=== PATIENT | male | born 1960 | race Two or more races ===

== ENCOUNTER 2016-12-07 21:21 | Emergency (ER) | payer OTHER ==
[~2016-12-07] VITALS: Ht 160 cm; Wt 81.6 kg
[~2016-12-07 21:21] MED LIST: ASPI-605 PO; [UNRECOGNIZED DRUG - REMARK]
[2016-12-07 22:12] LABS: BASOPHILS % (AUTO) 0.4 % (0.0-2.0); DIFF TOTAL % 100 %; EOSINOPHILS # (AUTO) 0.1 /CMM (0.0-0.7); EOSINOPHILS % (AUTO) 1.7 % (0.0-6.0); HEMATOCRIT 42 % (39-51); HEMOGLOBIN 14.5 g/dL (13.5-17.5); LYMPHOCYTES # (AUTO) 1.8 /CMM (0.8-4.8); LYMPHOCYTES % (AUTO) 25.2 % (20.0-44.0); MEAN CORPUSCULAR HEMOGLOBIN 31 PG (26.0-33.0); MEAN CORPUSCULAR HGB CONC 34 g/dl (31.0-36.0); MEAN CORPUSCULAR VOLUME 90 fL (80-96); MONOCYTES # (AUTO) 0.7 /CMM (0.1-1.30); MONOCYTES % (AUTO) 9.9 % (2.0-12.0); NEUTROPHILS # (AUTO) 4.5 /CMM (1.8-8.9); NEUTROPHILS % (AUTO) 62.8 % (43.0-81.0); PLATELET COUNT (AUTO) 169 /CMM (150-450); RED BLOOD CELL COUNT(AUTO) 4.72 MIL/uL (4.5-6.0); WHITE BLOOD COUNT (AUTO) 7.1 K/uL (4.3-11.0)
[2016-12-07 22:21] LABS: ANION GAP 10 (5-14); CALCIUM, SERUM 9.4 mg/dL (8.5-10.1); CARBON DIOXIDE 30 mmol/L (21-32); CHLORIDE 98 mmol/L (98-107); CREATININE 1.2 mg/dL (0.6-1.3); GFR 63 mL/min (>60); GLUCOSE 301 mg/dL (74-106); SODIUM SERUM 134 mmol/L (136-145); UREA NITROGEN, BLOOD 31 mg/dL (7-18)
[2016-12-07 22:26] LABS: ALANINE AMINOTRANSFERASE 45 U/L (12-78); ASPARTATE AMINOTRANSFERASE 29 U/L (15-37); BILIRUBIN,TOTAL 0.4 mg/dL (0.2-1.0); TOTAL PROTEIN, SERUM 7.5 g/dL (6.4-8.2)
[2016-12-07 22:41] LABS: ACETONE, SERUM NEGATIVE (NEGATIVE)
[2016-12-07 23:40] VITALS: BP 144/84
== END 2016-12-07 23:41 | disposition home or self-care (01) ==
LOC: ER 21:27
DX: E11.65 Type 2 diabetes mellitus with hyperglycemia (principal); R42 Dizziness and giddiness; I10 Essential (primary) hypertension; E78.00 Pure hypercholesterolemia, unspecified; Z79.82 Long term (current) use of aspirin
CPT/HCPCS: 36415; 80053; 82010; 82962; 85025; 99284; A4606; Z7610

== ENCOUNTER 2016-12-12 22:02 | Emergency (ER) | payer OTHER ==
[~2016-12-12] VITALS: Ht 170.2 cm; Wt 81.6 kg
[2016-12-12 23:09] LABS: BASOPHILS % (AUTO) 0.4 % (0.0-2.0); DIFF TOTAL % 100 %; EOSINOPHILS # (AUTO) 0.1 /CMM (0.0-0.7); EOSINOPHILS % (AUTO) 1.1 % (0.0-6.0); HEMATOCRIT 43 % (39-51); HEMOGLOBIN 14.5 g/dL (13.5-17.5); LYMPHOCYTES # (AUTO) 1.7 /CMM (0.8-4.8); LYMPHOCYTES % (AUTO) 17.8 % (20.0-44.0); MEAN CORPUSCULAR HEMOGLOBIN 31 PG (26.0-33.0); MEAN CORPUSCULAR HGB CONC 34 g/dl (31.0-36.0); MEAN CORPUSCULAR VOLUME 91 fL (80-96); MONOCYTES # (AUTO) 0.9 /CMM (0.1-1.30); MONOCYTES % (AUTO) 9.3 % (2.0-12.0); NEUTROPHILS # (AUTO) 6.7 /CMM (1.8-8.9); NEUTROPHILS % (AUTO) 71.4 % (43.0-81.0); PLATELET COUNT (AUTO) 147 /CMM (150-450); WHITE BLOOD COUNT (AUTO) 9.4 K/uL (4.3-11.0)
[2016-12-12 23:18] LABS: KETONES,URINE NEGATIVE (NEGATIVE); LEUKOCYTE ESTERASE ,URINE NEGATIVE (NEGATIVE)
[2016-12-12 23:19] LABS: CREATININE 1.2 mg/dL (0.6-1.3)
[2016-12-12 23:20] LABS: ADD UA MICROSCOPIC YES
[2016-12-12 23:25] LABS: BILIRUBIN,DIRECT 0.1 mg/dL (0.0-0.2); BILIRUBIN,TOTAL 0.4 mg/dL (0.2-1.0); INDIRECT BILIRUBIN 0.3 mg/dL (0.0-1.1); TOTAL PROTEIN, SERUM 7.5 g/dL (6.4-8.2)
[2016-12-12 23:27] LABS: TROPONIN I 0.02 ng/mL (0.00-0.056)
[2016-12-12 23:45] LABS: INR 0.99 (0.87-1.13); PROTHROMBIN TIME 10.7 SECS (9.5-12.7)
[2016-12-12 23:52] LABS: ADD URINE CULTURE NO; RBC,URINE NONE SEEN /HPF (0-2); WBC,URINE NONE SEEN /HPF (0-3)
[2016-12-13] MEDS ORDERED: IV NS 0.9% 1,000 ML BAG IV ONE (01:00)
[2016-12-13] MEDS ORDERED: TAMSULOSIN 0.4 MG CAP.SR.24H PO ONE (01:00)
[2016-12-13] MEDS ORDERED: IV SET PRIMARY 1 EA INFUS.SET MC ONE (01:04)
[2016-12-13] MEDS ORDERED: IV NS 0.9% 1,000 ML ONE (01:04)
[2016-12-13] MEDS ORDERED: TAMSULOSIN 0.4 MG CAP.SR.24H ONE (01:04)
[2016-12-13 01:59] VITALS: BP 127/75
[2016-12-13] MEDS ORDERED: ATOR20TA PO (11:13)
[2016-12-13] MEDS ORDERED: BENA1TAB18 PO (11:13)
[2016-12-13] MEDS ORDERED: DAPA5TAB PO (11:13)
[2016-12-13] MEDS ORDERED: AMLO5TAB2 PO (11:13)
[2016-12-14] MEDS ORDERED: PRED20TA PO (08:45)
[2016-12-14] MEDS ORDERED: CARV12.52 PO (08:45)
== END 2016-12-13 02:02 | disposition home or self-care (01) ==
LOC: ER 22:05
DX: I88.0 Nonspecific mesenteric lymphadenitis (principal); N20.0 Calculus of kidney; I10 Essential (primary) hypertension; E78.00 Pure hypercholesterolemia, unspecified; E11.9 Type 2 diabetes mellitus without complications; Z79.82 Long term (current) use of aspirin
CPT/HCPCS: 36415; 74176; 80048; 80076; 81001; 82010; 82962; 83690; 84484; 85025; 85730; 93005; 96360; 99285; A4606; J7030; Z7610; 81000-TC

== ENCOUNTER 2016-12-13 04:06 | Inpatient (IN) | payer BC, OTHER ==
[~2016-12-13] VITALS: Ht 170.2 cm; Wt 79.4 kg
[2016-12-13 04:47] LABS: BASOPHILS % (AUTO) 0.5 % (0.0-2.0); DIFF TOTAL % 100 %; EOSINOPHILS # (AUTO) 0.1 /CMM (0.0-0.7); EOSINOPHILS % (AUTO) 1.2 % (0.0-6.0); HEMATOCRIT 44 % (39-51); LYMPHOCYTES # (AUTO) 1.5 /CMM (0.8-4.8); LYMPHOCYTES % (AUTO) 16.9 % (20.0-44.0); MEAN CORPUSCULAR HEMOGLOBIN 31 PG (26.0-33.0); MEAN CORPUSCULAR HGB CONC 34 g/dl (31.0-36.0); MEAN CORPUSCULAR VOLUME 91 fL (80-96); MONOCYTES # (AUTO) 0.8 /CMM (0.1-1.30); MONOCYTES % (AUTO) 9.5 % (2.0-12.0); NEUTROPHILS # (AUTO) 6.3 /CMM (1.8-8.9); NEUTROPHILS % (AUTO) 71.9 % (43.0-81.0); PLATELET COUNT (AUTO) 132 /CMM (150-450); RED BLOOD CELL COUNT(AUTO) 4.86 MIL/uL (4.5-6.0); WHITE BLOOD COUNT (AUTO) 8.8 K/uL (4.3-11.0)
[2016-12-13 04:53] LABS: CALCIUM, SERUM 8.8 mg/dL (8.5-10.1); CREATININE 0.8 mg/dL (0.6-1.3); POTASSIUM 3.8 mmol/L (3.5-5.1)
[2016-12-13 04:59] LABS: ALBUMIN 4.1 g/dL (3.4-5.0); BILIRUBIN,DIRECT 0.1 mg/dL (0.0-0.2); BILIRUBIN,TOTAL 0.6 mg/dL (0.2-1.0); INDIRECT BILIRUBIN 0.5 mg/dL (0.0-1.1); TOTAL PROTEIN, SERUM 7.7 g/dL (6.4-8.2)
[2016-12-13 05:04] LABS: TROPONIN I 0.021 ng/mL (0.00-0.056)
[2016-12-13] MEDS ORDERED: ASPIRIN 81 MG TAB.CHEW PO ONE (05:30)
[2016-12-13] MEDS ORDERED: ASPIRIN 81 MG TAB.CHEW ONE (05:35)
[2016-12-13] MEDS ORDERED: HYDROCODONE/APAP 5/325MG 1 EACH TABLET PO PRN (06:00)
[2016-12-13] MEDS ORDERED: Z GUARD REMEDY 2 OZ OINT TP PRN (06:00)
[2016-12-13] MEDS ORDERED: ZOLPIDEM TARTRATE 5 MG TABLET PO PRN (06:00)
[2016-12-13] MEDS ORDERED: MAGNESIUM HYDROXIDE 30 ML UDC PO PRN (06:00)
[2016-12-13] MEDS ORDERED: ACETAMINOPHEN 325 MG TABLET PO PRN (06:00)
[2016-12-13] MEDS ORDERED: ONDANSETRON HCL/PF 4 MG/2 ML VIAL IVP PRN (06:00)
[2016-12-13] MEDS ORDERED: MAG HYDROX/AL HYDROX/SIMETH 30 ML UDC PO PRN (06:00)
[2016-12-13 06:30] VITALS: BP 157/92
[2016-12-13] MEDS ORDERED: MORPHINE SULFATE INJ 2 MG/ML DISP.SYRIN IV PRN (06:30)
[2016-12-13] MEDS ORDERED: PANTOPRAZOLE 40 MG TABLET.DR PO SCH (07:30)
[2016-12-13 08:00] VITALS: BP 156/86
[2016-12-13] MEDS: methylPREDNISolone SOD SUCC 125 MG/2ML VIAL IV SCH (08:49)
[2016-12-13] MEDS: CARVEDILOL 12.5 MG TABLET PO SCH ×2 (08:50→22:15)
[2016-12-13] MEDS: ASPIRIN EC 81 MG TABLET.DR PO SCH (08:50)
[2016-12-13] MEDS ORDERED: SECONDARY IV SET 1 EA INFUS.SET MC ONE (09:29)
[2016-12-13] MEDS ORDERED: IV SET PRIMARY PUMP SET 1 EA INFUS.SET MC ONE (09:33)
[2016-12-13] MEDS: CEFTRIAXONE 1 G in IV D5W 50 ML IV SCH (09:37)
[2016-12-13] MEDS: IV D5/ 0.9% NACL 1,000 ML IV PRN (09:38)
[2016-12-13 09:51] LABS: PHOSPHORUS 3.2 mg/dL (2.5-4.9)
[2016-12-13] MEDS ORDERED: BENA1TAB18 PO (11:13)
[2016-12-13] MEDS ORDERED: AMLO5TAB2 PO (11:13)
[2016-12-13] MEDS ORDERED: ATOR20TA PO (11:13)
[2016-12-13] MEDS ORDERED: DAPA5TAB PO (11:13)
[2016-12-13 16:00] VITALS: BP 149/66
[2016-12-13] MEDS ORDERED: HOME MED MISCELLANEOUS PO SCH (17:00)
[2016-12-13] MEDS ORDERED: ATORVASTATIN 10 MG TABLET PO SCH (18:00)
[2016-12-13] MEDS ORDERED: BENAZEPRIL HCL 20 MG TABLET PO SCH (18:30)
[2016-12-13] MEDS ORDERED: HYDROCHLOROTHIAZIDE 25 MG TABLET PO SCH (18:30)
[2016-12-13] MEDS: AMLODIPINE BESYLATE 5 MG TABLET PO SCH (18:46)
[2016-12-13] MEDS: HYDROCHLOROTHIAZIDE 25 MG TABLET PO SCH (18:46)
[2016-12-13] MEDS: BENAZEPRIL HCL 20 MG TABLET PO SCH (18:47)
[2016-12-13 20:00] VITALS: BP 146/92
[2016-12-14] MEDS: IV D5/ 0.9% NACL 1,000 ML IV PRN (01:24)
[2016-12-14 06:59] LABS: BASOPHILS % (AUTO) 0.1 % (0.0-2.0); DIFF TOTAL % 100 %; HEMATOCRIT 40 % (39-51); HEMOGLOBIN 13.5 g/dL (13.5-17.5); LYMPHOCYTES # (AUTO) 1.3 /CMM (0.8-4.8); LYMPHOCYTES % (AUTO) 9.2 % (20.0-44.0); MEAN CORPUSCULAR HEMOGLOBIN 31 PG (26.0-33.0); MEAN CORPUSCULAR HGB CONC 34 g/dl (31.0-36.0); MEAN CORPUSCULAR VOLUME 91 fL (80-96); MONOCYTES # (AUTO) 1.2 /CMM (0.1-1.30); MONOCYTES % (AUTO) 8.5 % (2.0-12.0); NEUTROPHILS # (AUTO) 11.9 /CMM (1.8-8.9); NEUTROPHILS % (AUTO) 82.2 % (43.0-81.0); PLATELET COUNT (AUTO) 144 /CMM (150-450); RED BLOOD CELL COUNT(AUTO) 4.36 MIL/uL (4.5-6.0); WHITE BLOOD COUNT (AUTO) 14.4 K/uL (4.3-11.0)
[2016-12-14 07:07] LABS: ALANINE AMINOTRANSFERASE 36 U/L (12-78); ALBUMIN 3.5 g/dL (3.4-5.0); ANION GAP 10 (5-14); ASPARTATE AMINOTRANSFERASE 18 U/L (15-37); BILIRUBIN,TOTAL 0.3 mg/dL (0.2-1.0); CALCIUM, SERUM 8.7 mg/dL (8.5-10.1); CARBON DIOXIDE 28 mmol/L (21-32); CHLORIDE 105 mmol/L (98-107); CREATININE 0.9 mg/dL (0.6-1.3); GFR 87 mL/min (>60); GLUCOSE 264 mg/dL (74-106); PHOSPHORUS 3.3 mg/dL (2.5-4.9); POTASSIUM 3.7 mmol/L (3.5-5.1); SODIUM SERUM 139 mmol/L (136-145); TOTAL PROTEIN, SERUM 6.8 g/dL (6.4-8.2); UREA NITROGEN, BLOOD 24 mg/dL (7-18)
[2016-12-14 07:08] LABS: TROPONIN I < 0.017 ng/mL (0.00-0.056)
[2016-12-14 08:00] VITALS: BP 139/82
[2016-12-14] MEDS: CEFTRIAXONE 1 G in IV D5W 50 ML IV SCH (08:22)
[2016-12-14] MEDS: BENAZEPRIL HCL 20 MG TABLET PO SCH (08:23)
[2016-12-14 08:24] VITALS: BP 139/82
[2016-12-14] MEDS: ASPIRIN EC 81 MG TABLET.DR PO SCH (08:24)
[2016-12-14] MEDS: AMLODIPINE BESYLATE 5 MG TABLET PO SCH (08:24)
[2016-12-14] MEDS: CARVEDILOL 12.5 MG TABLET PO SCH (08:24)
[2016-12-14] MEDS: HYDROCHLOROTHIAZIDE 25 MG TABLET PO SCH (08:24)
[2016-12-14] MEDS: methylPREDNISolone SOD SUCC 125 MG/2ML VIAL IV SCH (08:25)
[2016-12-14] MEDS ORDERED: CARV12.52 PO (08:45)
[2016-12-14] MEDS ORDERED: PRED20TA PO (08:45)
[2016-12-14] MEDS ORDERED: DAPAGLIFLOZIN 5 MG PO SCH (09:00)
[2016-12-14 14:25] LABS: CHOLESTEROL 180 mg/dL (<200); HDL CHOLESTEROL 52 mg/dL (40-60); LDL 115 mg/dL (0-99); TRIGLYCERIDES 43 mg/dL (30-150)
== END 2016-12-14 11:30 | disposition home or self-care (01) | DRG 206 ==
LOC: ER 04:08 → TELE 05:35 → MED 22:04
PROVIDERS: ADMIT Family Medicine; ATTEND Family Medicine
DX: M94.0 Chondrocostal junction syndrome [Tietze] (principal); D68.59 Other primary thrombophilia; I10 Essential (primary) hypertension; E11.9 Type 2 diabetes mellitus without complications; I88.0 Nonspecific mesenteric lymphadenitis; R42 Dizziness and giddiness; E78.5 Hyperlipidemia, unspecified
CPT/HCPCS: 36415; 71010-TC; 80048-TC; 80053-TC; 80061-TC; 80076-TC; 82962-TC; 83735-TC; 84100-TC; 84484-TC; 85025-TC; 93307-TC; A4606; J0696; J2930; J7042; J7060; Z7610

== ENCOUNTER 2016-12-15 04:14 | Emergency (ER) | payer OTHER ==
[~2016-12-15] VITALS: Ht 160 cm; Wt 81.6 kg
[~2016-12-15 04:14] MED LIST changes: +AMLO5TAB2 PO; +ATOR20TA PO; +BENA1TAB18 PO; +CARV12.52 PO; +DAPA5TAB PO; +PRED20TA PO
[2016-12-15] MEDS ORDERED: IV SET PRIMARY 1 EA INFUS.SET MC ONE (04:42)
[2016-12-15] MEDS ORDERED: IV NS 0.9% 1,000 ML ONE (04:42)
[2016-12-15] MEDS ORDERED: IV NS 0.9% 1,000 ML BAG IV ONE (05:00)
[2016-12-15 05:54] VITALS: BP 146/87
== END 2016-12-15 05:54 | disposition home or self-care (01) ==
LOC: ER 04:16
DX: R19.7 Diarrhea, unspecified (principal); E11.9 Type 2 diabetes mellitus without complications; I10 Essential (primary) hypertension; Z79.82 Long term (current) use of aspirin
CPT/HCPCS: 96360; 99284; A4606; J7030; Z7610

== ENCOUNTER 2016-12-18 12:48 | Emergency (ER) | payer OTHER ==
[~2016-12-18] VITALS: Ht 160 cm; Wt 81.6 kg
[2016-12-18 13:12] VITALS: BP 154/74
[2016-12-18] MEDS ORDERED: IV NS 0.9% 1,000 ML BAG IV ONE (13:30)
[2016-12-18 13:45] LABS: BASOPHILS % (AUTO) 0.5 % (0.0-2.0); DIFF TOTAL % 100 %; EOSINOPHILS # (AUTO) 0.1 /CMM (0.0-0.7); EOSINOPHILS % (AUTO) 0.9 % (0.0-6.0); HEMATOCRIT 48 % (39-51); HEMOGLOBIN 16.4 g/dL (13.5-17.5); LYMPHOCYTES # (AUTO) 1.9 /CMM (0.8-4.8); MEAN CORPUSCULAR HEMOGLOBIN 31 PG (26.0-33.0); MEAN CORPUSCULAR HGB CONC 35 g/dl (31.0-36.0); MEAN CORPUSCULAR VOLUME 90 fL (80-96); MONOCYTES # (AUTO) 0.8 /CMM (0.1-1.30); MONOCYTES % (AUTO) 9.9 % (2.0-12.0); NEUTROPHILS # (AUTO) 5.4 /CMM (1.8-8.9); NEUTROPHILS % (AUTO) 65.7 % (43.0-81.0); PLATELET COUNT (AUTO) 151 /CMM (150-450); RED BLOOD CELL COUNT(AUTO) 5.27 MIL/uL (4.5-6.0); WHITE BLOOD COUNT (AUTO) 8.2 K/uL (4.3-11.0)
[2016-12-18 13:55] LABS: CALCIUM, SERUM 8.9 mg/dL (8.5-10.1); CREATININE 1.2 mg/dL (0.6-1.3); POTASSIUM 3.7 mmol/L (3.5-5.1)
[2016-12-18 14:01] LABS: ALBUMIN 4.1 g/dL (3.4-5.0); BILIRUBIN,DIRECT 0.1 mg/dL (0.0-0.2); BILIRUBIN,TOTAL 0.5 mg/dL (0.2-1.0); INDIRECT BILIRUBIN 0.4 mg/dL (0.0-1.1); TOTAL PROTEIN, SERUM 8.5 g/dL (6.4-8.2)
== END 2016-12-18 14:13 | disposition home or self-care (01) ==
LOC: ER 12:50
DX: R19.7 Diarrhea, unspecified (principal); Z79.82 Long term (current) use of aspirin; I10 Essential (primary) hypertension; E11.9 Type 2 diabetes mellitus without complications; Z87.442 Personal history of urinary calculi
CPT/HCPCS: 36415; 80048-TC; 80076-TC; 83690-TC; 85025-TC; A4606; Z7610

== ENCOUNTER 2016-12-18 21:19 | Emergency (ER) | payer OTHER ==
[~2016-12-18] VITALS: Ht 160 cm; Wt 81.6 kg
[2016-12-18 21:25] VITALS: BP 163/95
== END 2016-12-18 23:43 | disposition home or self-care (01) ==
LOC: ER 21:19
DX: R19.7 Diarrhea, unspecified (principal); I10 Essential (primary) hypertension; E11.9 Type 2 diabetes mellitus without complications; Z79.82 Long term (current) use of aspirin; Z87.442 Personal history of urinary calculi; T50.905A Adverse effect of unspecified drugs, medicaments and biological substances, initial encounter; Y92.89 Other specified places as the place of occurrence of the external cause
CPT/HCPCS: 82962-TC; A4606; Z7610

== ENCOUNTER 2017-03-20 23:32 | Emergency (ER) | payer BC ==
[~2017-03-20] VITALS: Ht 160 cm; Wt 81.6 kg
[2017-03-21] MEDS ORDERED: KETOROLAC TROMETHAMINE INJ 30 MG/ML VIAL IV ONE
[2017-03-21] MEDS ORDERED: IV NS 0.9% 500 ML BAG IV ONE
--- NOTE | 2017-03-21 | NUR ---
To bed 8 a 57 yo male bibself with c/o of dysuria x 1 week and back pain for x1 day. Patient is aaox4, ambulatory with steady gait. Per patient he went to pmd today, blood test was done however the results will come in "few days." Afebrile. VSS. Initiated comfort measures. Awaiting for er md harrington.
[2017-03-21] MEDS ORDERED: IV SET PRIMARY 1 EA INFUS.SET MC ONE (00:01)
[2017-03-21] MEDS ORDERED: IV NS 0.9% 500 ML IV ONE (00:01)
[2017-03-21] MEDS ORDERED: KETOROLAC TROMETHAMINE 15 MG/ML VIAL ONE (00:01)
--- NOTE | 2017-03-21 00:13 | NUR ---
started a saline lock on the lac g 20, blood drawn and sent to lab.
--- NOTE | 2017-03-21 00:16 | NUR ---
Medicated patient as ordered by Dr Brown.
[2017-03-21 00:20] LABS: APPEARANCE,URINE CLEAR (CLEAR); BILIRUBIN,URINE NEGATIVE (NEGATIVE); BLOOD, URINE TRACE Ery/uL (NEGATIVE); KETONES,URINE NEGATIVE (NEGATIVE); LEUKOCYTE ESTERASE ,URINE NEGATIVE (NEGATIVE); NITRITE, URINE NEGATIVE (NEGATIVE); PROTEIN,URINE NEGATIVE (NEGATIVE); UGLUCOSE NEGATIVE (NEGATIVE); UROBILINOGEN,URINE 0.2 EU/dL (0.2)
[2017-03-21 00:20] LABS: BASOPHILS % (AUTO) 0.2 % (0.0-2.0); EOSINOPHILS # (AUTO) 0.1 /CMM (0.0-0.7); HEMATOCRIT 46 % (39-51); HEMOGLOBIN 15.1 g/dL (13.5-17.5); LYMPHOCYTES # (AUTO) 1.7 /CMM (0.8-4.8); MEAN CORPUSCULAR HEMOGLOBIN 30 PG (26.0-33.0); MEAN CORPUSCULAR HGB CONC 33 g/dl (31.0-36.0); MEAN CORPUSCULAR VOLUME 91 fL (80-96); MONOCYTES # (AUTO) 1.1 /CMM (0.1-1.30); MONOCYTES % (AUTO) 8.1 % (2.0-12.0); NEUTROPHILS # (AUTO) 10.1 /CMM (1.8-8.9); NEUTROPHILS % (AUTO) 77.7 % (43.0-81.0); PLATELET COUNT (AUTO) 147 /CMM (150-450); RDW COEFFICIENT OF VARIATION 13.5 (11.5-15.0); RED BLOOD CELL COUNT(AUTO) 5.01 MIL/uL (4.5-6.0)
[2017-03-21 00:22] LABS: COLOR,URINE STRAW (YELLOW)
[2017-03-21 00:27] LABS: ADD URINE CULTURE NO; BACTERIA,URINE None seen /HPF (None Seen); RBC,URINE 0-2 /HPF (0-2); SQUAMOUS EPITHELIAL CELL,UR Rare /HPF (None Seen)
[2017-03-21 00:30] LABS: CALCIUM, SERUM 8.8 mg/dL (8.5-10.1); CREATININE 0.9 mg/dL (0.6-1.3); POTASSIUM 3.6 mmol/L (3.5-5.1)
--- NOTE | 2017-03-21 00:35 | NUR ---
back from ct.
[2017-03-21 00:40] LABS: ALBUMIN 4.1 g/dL (3.4-5.0); BILIRUBIN,DIRECT 0.1 mg/dL (0.0-0.2); BILIRUBIN,TOTAL 0.6 mg/dL (0.2-1.0); TOTAL PROTEIN, SERUM 7.8 g/dL (6.4-8.2)
--- NOTE | 2017-03-21 01:31 | NUR ---
dcIV removed. Catheter intact and site benign. Pressure and 4x4 applied to site. No bleeding noted. Patient discharged to home in stable condition. Written and verbal after care instructions given. Patient verbalizes understanding of instruction. Patient is ambulatory with steady gait.
[2017-03-21 01:32] VITALS: BP 144/79
== END 2017-03-21 01:33 | disposition home or self-care (01) ==
LOC: ER 23:32
DX: N20.0 Calculus of kidney (principal); E11.9 Type 2 diabetes mellitus without complications; I10 Essential (primary) hypertension; Z79.82 Long term (current) use of aspirin
CPT/HCPCS: 36415; 74176; 80048; 80076; 81001; 83690; 85025; 96374; 99285; A4606 ×2; J1885; J7040; Z7610 ×2; 81000-TC

== ENCOUNTER 2017-12-15 09:07 | Emergency (ER) | payer BC, MEDICAID ==
[~2017-12-15] VITALS: Ht 165.1 cm; Wt 70.9 kg
--- NOTE | 2017-12-15 09:15 | NUR ---
AAOX3, CAME TO ER C/O POUNDING-LIKE SENSATION IN THE CHEST SINCE YESTERDAY. DENIES CHEST PAIN AND POUNDING LIKE SENSATION DURING ASSESSMENT. SKIN IS WARM AND DRY. RESP IS EVEN AND UNLABORED WITH NAD NOTED. PLACED ON THE MONITOR. WILL CONTINUOUSLY MONITOR THE PATIENT. DR DAVIS AT FOR EVAL.
[2017-12-15] MEDS ORDERED: Magnesium 1GM/D5W 100ML PREMIX 100 ML IV ONE (09:20)
[2017-12-15] MEDS ORDERED: ASPIRIN 325 MG TABLET ONE (09:20)
[2017-12-15 09:27] LABS: BASOPHILS % (AUTO) 0.8 % (0.0-2.0); EOSINOPHILS % (AUTO) 2.3 % (0.0-6.0); HEMATOCRIT 50 % (39-51); HEMOGLOBIN 17.5 g/dL (13.5-17.5); LYMPHOCYTES % (AUTO) 16.9 % (20.0-44.0); MEAN CORPUSCULAR HEMOGLOBIN 31 PG (26.0-33.0); MEAN CORPUSCULAR HGB CONC 35 g/dl (31.0-36.0); MEAN CORPUSCULAR VOLUME 90 fL (80-96); MONOCYTES % (AUTO) 7.5 % (2.0-12.0); NEUTROPHILS % (AUTO) 72.5 % (43.0-81.0); PLATELET COUNT (AUTO) 152 /CMM (150-450); RDW COEFFICIENT OF VARIATION 12.5 (11.5-15.0); RED BLOOD CELL COUNT(AUTO) 5.59 MIL/uL (4.5-6.0); WHITE BLOOD COUNT (AUTO) 6.7 K/uL (4.3-11.0)
[2017-12-15 09:28] LABS: BASOPHILS # (AUTO) 0.1 /CMM (0.0-0.2); EOSINOPHILS # (AUTO) 0.2 /CMM (0.0-0.7); LYMPHOCYTES # (AUTO) 1.1 /CMM (0.8-4.8); MONOCYTES # (AUTO) 0.5 /CMM (0.1-1.30); NEUTROPHILS # (AUTO) 4.8 /CMM (1.8-8.9)
[2017-12-15] MEDS ORDERED: Magnesium 1GM/D5W 100ML PREMIX 100 ML IV SCH (09:30)
[2017-12-15] MEDS ORDERED: ASPIRIN 325 MG TABLET PO ONE (09:30)
--- NOTE | 2017-12-15 09:30 | NUR ---
CXR IN PROGRESS AT BS
[2017-12-15 09:42] LABS: CARBON DIOXIDE 29 mmol/L (21-32); CREATININE 0.8 mg/dL (0.6-1.3); GLUCOSE 226 mg/dL (74-106); UREA NITROGEN, BLOOD 19 mg/dL (7-18)
[2017-12-15 09:48] LABS: TROPONIN I < 0.017 ng/mL (0.00-0.056)
[2017-12-15 09:49] LABS: INR 0.97 (0.87-1.13)
[2017-12-15 09:54] LABS: CHLORIDE 100 mmol/L (98-107); POTASSIUM 3.7 mmol/L (3.5-5.1); SODIUM SERUM 136 mmol/L (136-145)
[2017-12-15] MEDS ORDERED: BENAZEPRIL HCL 10 MG TABLET PO ONE (10:00)
--- NOTE | 2017-12-15 10:35 | NUR ---
DR DAVIS AT BS FOR RE-EVAL.
[2017-12-15] MEDS ORDERED: BENAZEPRIL HCL 10 MG TABLET ONE (10:37)
--- NOTE | 2017-12-15 10:42 | NUR ---
IV removed. Catheter intact and site benign. Pressure and 4x4 applied to site. No bleeding noted.Patient discharged to home in stable condition. Written and verbal after care instructions given. Patient verbalizes understanding of instruction.
[2017-12-15 10:50] VITALS: BP 165/92
== END 2017-12-15 10:55 | disposition home or self-care (01) ==
LOC: ER 09:08
DX: R00.2 Palpitations (principal); I10 Essential (primary) hypertension; E11.65 Type 2 diabetes mellitus with hyperglycemia; Z87.442 Personal history of urinary calculi; Z79.82 Long term (current) use of aspirin
CPT/HCPCS: 36415; 71045; 80048; 83735; 84484; 85025; 85730; 93005; 96365; 99285; A4606; J3475; Z7610

== ENCOUNTER 2017-12-17 04:18 | Inpatient (IN) | payer OTHER ==
[2017-12-17] VITALS (9 sets, daily range): BP systolic 114–185; BP diastolic 70–107
[~2017-12-17] VITALS: Ht 160 cm; Wt 81.6 kg
--- NOTE | 2017-12-17 04:27 | NUR ---
PT AMBULATORY TO ER BED 7. PT BIB SELF C/O "FEELING LIKE HEART SQUEEZING" X 4 DAYS. PT PLACED IN GOWN AND ON YARD HAND. VSS/RESP EVEN UNLABORED/NAD NOTED/SKIN WARM AND DRY/DENIES N-V-D/AOX4. AWAITING MD RIVERA.
--- NOTE | 2017-12-17 04:33 | NUR ---
RN AT BEDSIDE TO OBTAIN EKG.
--- NOTE | 2017-12-17 04:45 | NUR ---
LAB AT BEDSIDE TO DRAW.
--- NOTE | 2017-12-17 04:50 | NUR ---
AT BEDSIDE FOR EVAL.
--- NOTE | 2017-12-17 04:56 | NUR ---
XRAY AT BEDSIDE.
[2017-12-17 04:58] LABS: BASOPHILS % (AUTO) 0.5 % (0.0-2.0); EOSINOPHILS # (AUTO) 0.2 /CMM (0.0-0.7); EOSINOPHILS % (AUTO) 3.6 % (0.0-6.0); HEMATOCRIT 47 % (39-51); HEMOGLOBIN 16.2 g/dL (13.5-17.5); LYMPHOCYTES # (AUTO) 1.5 /CMM (0.8-4.8); LYMPHOCYTES % (AUTO) 23.5 % (20.0-44.0); MEAN CORPUSCULAR HEMOGLOBIN 31 PG (26.0-33.0); MEAN CORPUSCULAR HGB CONC 35 g/dl (31.0-36.0); MEAN CORPUSCULAR VOLUME 90 fL (80-96); MONOCYTES # (AUTO) 0.6 /CMM (0.1-1.30); MONOCYTES % (AUTO) 10.4 % (2.0-12.0); NEUTROPHILS # (AUTO) 3.8 /CMM (1.8-8.9); PLATELET COUNT (AUTO) 156 /CMM (150-450); RDW COEFFICIENT OF VARIATION 12.8 (11.5-15.0); RED BLOOD CELL COUNT(AUTO) 5.22 MIL/uL (4.5-6.0); WHITE BLOOD COUNT (AUTO) 6.2 K/uL (4.3-11.0)
[2017-12-17 05:10] LABS: CALCIUM, SERUM 9.2 mg/dL (8.5-10.1); CARBON DIOXIDE 30 mmol/L (21-32); CHLORIDE 104 mmol/L (98-107); CREATININE 0.9 mg/dL (0.6-1.3); GLUCOSE 230 mg/dL (74-106); POTASSIUM 3.6 mmol/L (3.5-5.1); SODIUM SERUM 140 mmol/L (136-145); UREA NITROGEN, BLOOD 19 mg/dL (7-18)
[2017-12-17 05:18] LABS: TROPONIN I < 0.017 ng/mL (0.00-0.056)
--- NOTE | 2017-12-17 05:38 | NUR ---
TELE BED 112.2
--- NOTE | 2017-12-17 05:45 | NUR ---
RECEIVED REPORT FROM ER NURSE XAVIER
--- NOTE | 2017-12-17 05:50 | NUR ---
REPORT GIVEN TO NINA HAAS FOR BRYAN.
[2017-12-17] MEDS ORDERED: IV NS 0.9% 1,000 ML BAG IV ONE (06:00)
--- NOTE | 2017-12-17 06:26 | NUR ---
PT TRANSPORTED TO [place] [address] VIA STRATCHER ON TRUST OPERATIONS ASSISTANT WITH RN PER ACLS PROTOCOL.
--- NOTE | 2017-12-17 06:50 | NUR ---
INTAKE MAN INITIAL NOTES RECEIVED PATIENT VIA TONI, PLACED PATIENT IN ROOM 109. PATIENT AWAKE A/OX4, ABLE TO MAKE NEEDS KNOWN. DENIES PAIN. STATES HE FEELS CHEST PRESSURE RATHER THAN PAIN, NON-RADIATING. ON ROOM AIR SPO2 98%. ON TELE MONITOR SR 94. SKIN WARM AND DRY TO TOUCH. WITH NS BOLUS RUNNING. PER PATIENT, HE WOKE UP FROM HIS SLEEP FEELING PRESSURE IN HIS CHEST, PALPITATIONS AND MOUTH DRYNESS, HE CAME ON SUNDAY FOR THE SAME PROBLEM BUT WAS SENT HOME. PATIENT NOTED WITH BP 185/98, PER PATIENT HE NOTICED HIS BP HAS BEEN ON THE HIGH SIDE RECENTLY. WITH BLOOD SUGAR AT 206. PER PATIENT HE HASN'T BEEN TAKING DIABETIC PILLS THE PAST COUPLE DAYS DUE TO COVERAGE. STATES HE WAS SUPPOSE TO VISIT DOCTOR TO CHANGE DIABETIC MEDICATION THAT HIS INSURANCE COVERS. PENDING ADMISSION ORDERS. PATIENT AMBULATES WITH NO DIFFICULTY. ORIENTED TO ROOM AND CALL LIGHT SYSTEM. PATIENT VERBALIZED UNDERSTANDING. SIDE RAILS UP AND LOCKED. BED KEPT AT LOWEST POSITION. CALL LIGHT KEPT WITHIN EASY REACH. WILL ENDORSE CONTINUITY OF CARE TO AM NURSE.
--- NOTE | 2017-12-17 07:37 | NUR ---
RELAYED TO AM NURSE TO FOLLOW UP ADMISSION ORDERS, RELAYED BP AND BLOOD SUGAR RESULT. AM NURSE WILL FOLLOW UP.
--- NOTE | 2017-12-17 07:50 | NUR ---
POLE INSPECTOR OPENING NOTE PATIENT IS COMFORTABLE IN BED WITH CALL LIGHT WITHIN REACH. SAFETY MEASURES IMPLEMENTED. ABLE TO COMMUNICATE NEEDS. IV INTACT AND PATENT NO REDNESS OR SWELLING NOTED. ALERT AND ORIENTED x4. NO CHEST PAIN AT THIS TIME OR OTHER PAIN NOTED. NO SOB OR DISTRESS NOTED. BLOOD SUGAR TO BE MONITORED THROUGHOUT SHIFT. AWAITING MD ORDERS. WILL CONTINUE TO MONITOR THROUGHOUT SHIFT
[2017-12-17] MEDS ORDERED: ACETAMINOPHEN 325 MG TABLET PO PRN (08:00)
[2017-12-17] MEDS ORDERED: DEXTROSE 50%-WATER 50 ML DISP.SYRIN IV PRN (08:00)
[2017-12-17] MEDS ORDERED: Z GUARD REMEDY 2 OZ OINT TP PRN (08:00)
[2017-12-17] MEDS ORDERED: HYDROCODONE/APAP 5/325MG 1 EACH TABLET PO PRN (08:00)
[2017-12-17] MEDS ORDERED: MAG HYDROX/AL HYDROX/SIMETH 30 ML UDC PO PRN (08:00)
[2017-12-17] MEDS ORDERED: ZOLPIDEM TARTRATE 5 MG TABLET PO PRN (08:00)
[2017-12-17] MEDS ORDERED: ONDANSETRON HCL/PF 4 MG/2 ML VIAL IVP PRN (08:00)
[2017-12-17] MEDS ORDERED: *INSULIN REGULAR(HUMULIN R)HUM 100 UNIT/ML VIAL SQ PRN (08:00)
[2017-12-17] MEDS: BLOOD SUGAR DIAGNOSTIC 1 EACH STRIP VI SCH ×4 (08:00→23:02)
--- NOTE | 2017-12-17 08:45 | NUR ---
ZYGLO INSPECTOR NOTE PATIENT HAD BLOOD SUGAR CHECKED ON PRIOR SHIFT, PATIENT DOES NOT WANT SUGAR RECHECKED AGAIN UNTIL LUNCH TIME.
[2017-12-17] MEDS: ASPIRIN EC 81 MG TABLET.DR PO SCH (08:52)
[2017-12-17] MEDS: HYDROCHLOROTHIAZIDE 25 MG TABLET PO SCH (08:52)
[2017-12-17] MEDS: BENAZEPRIL HCL 20 MG TABLET PO SCH (08:52)
[2017-12-17] MEDS: AMLODIPINE BESYLATE 5 MG TABLET PO SCH (08:53)
[2017-12-17] MEDS ORDERED: CARVEDILOL 12.5 MG TABLET PO SCH (09:00)
[2017-12-17] MEDS ORDERED: Dapagliflozin Propanediol (Farxiga) 5 MG PO SCH (09:00)
[2017-12-17] MEDS: INSULIN REGULAR, HUMAN 100 UNIT/ML 3 ML VIAL SQ PRN ×2 (10:36→17:25)
[2017-12-17 12:29] LABS: THYROID STIMULATING HORMONE 0.63 uIU/mL (0.358-3.74)
--- NOTE | 2017-12-17 15:58 | NUR ---
AUTO CRANE DRIVER NOTE NOTIFIED MD ABOUT STRESS TEST WITH DR. FRANCO TOMORROW AT 0900. CONSENT OBTAINED AND PLACED IN CHART. NUCLEAR MEDICINE MADE AWARE. PATIENT UNDERSTANDS NPO AT MIDNIGHT AND NO COFFEE OR TEA. CHARGE NURSE AWARE. WILL ENDORSE TO GAMING COMMISSIONER NURSE FOR BRYAN
[2017-12-17] MEDS ORDERED: ATORVASTATIN 10 MG TABLET PO SCH (18:00)
--- NOTE | 2017-12-17 18:27 | NUR ---
TREATING ENGINEER HELPER CLOSING NOTE PATIENT IS IN BED COMFORTABLE AT THIS TIME. NO PAIN AT THIS TIME. NO SOB OR DISTRESS NOTED. CALL LIGHT WITHIN REACH AT ALL TIMES. SAFETY MEASURES IMPLEMENTED. IV INTACT AND PATENT NO REDNESS OR SWELLING. BLOOD SUGARS MONITORED THROUGHOUT SHIFT AND INSULIN GIVEN NEEDED. STRESS TEST IN AM, NPO AFTER MIDNIGHT NO TEA OR COFFEE, CONSENT IN CHART. TELE MONITOR SR- 76. WILL ENDORSE TO DOUBLE END TRIMMER NURSE FOR BRYAN
--- NOTE | 2017-12-17 19:59 | NUR ---
RN OPENING NOTE RECEIVED PATIENT SITTING IN THE BED, ALERT/ORIENTED X 4, ON ROOM AIR, NO CHEST PAIN OR DISCOMFORT NOTED, INSTRUCTED PATIENT TO USE CALL LIGHT WHEN NEED TO USE BATHROOM, SR, LAC 18 GAUGE, INTACT, NO S/S OF INFECTION NOTED, BED IN THE LOW POSITION, CALL LIGHT WITHIN REACH, WILL CONTINUE TO MONITOR
--- NOTE | 2017-12-17 20:13 | NUR ---
RN NOTE PROVIDED REPORT TO NURSE CATHERINE, PATIENT WILL BE UNDER HER CARE
--- NOTE | 2017-12-17 20:30 | NUR ---
TELE1/RN PATIENT IS AWAKE, ALERT, ORIENTED, COMFORTABLE, NO C/O PAIN, NO DISTRESS NOTED, INFORMED ABOUT LEXISCAN TEST IN THE MORNING AND NOTHING BY MOUTH AFTER MIDNIGHT, VERBALIZED UNDERSTANDING. WILL MONITOR.
[2017-12-17] MEDS: CARVEDILOL 12.5 MG TABLET PO SCH (21:16)
--- NOTE | 2017-12-18 | NUR ---
TELE1/RN PATIENT IS SLEEPING AT THIS TIME, AROUSABLE, APPEAR COMFORTABLE, NO DISTRESS NOTED, WILL CONTINUE TO MONITOR.
[2017-12-18 04:00] VITALS: BP 153/85
[2017-12-18 06:26] LABS: BASOPHILS % (AUTO) 0.4 % (0.0-2.0); EOSINOPHILS # (AUTO) 0.1 /CMM (0.0-0.7); EOSINOPHILS % (AUTO) 1.5 % (0.0-6.0); HEMATOCRIT 44 % (39-51); HEMOGLOBIN 15.2 g/dL (13.5-17.5); LYMPHOCYTES # (AUTO) 1.8 /CMM (0.8-4.8); LYMPHOCYTES % (AUTO) 24.5 % (20.0-44.0); MEAN CORPUSCULAR HEMOGLOBIN 31 PG (26.0-33.0); MEAN CORPUSCULAR HGB CONC 35 g/dl (31.0-36.0); MEAN CORPUSCULAR VOLUME 91 fL (80-96); MONOCYTES # (AUTO) 0.7 /CMM (0.1-1.30); MONOCYTES % (AUTO) 9.6 % (2.0-12.0); NEUTROPHILS # (AUTO) 4.8 /CMM (1.8-8.9); PLATELET COUNT (AUTO) 144 /CMM (150-450); RDW COEFFICIENT OF VARIATION 13.1 (11.5-15.0); RED BLOOD CELL COUNT(AUTO) 4.83 MIL/uL (4.5-6.0); WHITE BLOOD COUNT (AUTO) 7.5 K/uL (4.3-11.0)
[2017-12-18 06:41] LABS: CALCIUM, SERUM 9.5 mg/dL (8.5-10.1); CREATININE 0.8 mg/dL (0.6-1.3); MAGNESIUM 1.9 mg/dL (1.8-2.4); PHOSPHORUS 3.8 mg/dL (2.5-4.9); POTASSIUM 4.1 mmol/L (3.5-5.1)
--- NOTE | 2017-12-18 06:47 | NUR ---
TELE1/RN PATIENT IS AWAKE AT THIS TIME, COMFORTABLE, NO C/O PAIN, NO DISTRESS NOTE, BLOOD SUGAR 249, NO S/S OF HYPERGLYCEMIA, DID NOT COVER WITH INSULIN PATIENT IS NPO FOR LEXISCAN TODAY. ALL NEEDS ATTENDED AT THIS TIME. WILL CONTINUE TO MONITOR.
[2017-12-18] MEDS: BLOOD SUGAR DIAGNOSTIC 1 EACH STRIP VI SCH ×2 (06:50→12:08)
--- NOTE | 2017-12-18 07:30 | NUR ---
RN NOTES RECEIVED PATIENT RESTING COMFORTABLY IN BED, AWAKE ALERT AND VERBALLY RESPONSIVE, ABLE TO MAKE NEEDS KNOWN. IN NO APPARENT PAIN OR DISCOMFORT AT THIS TIME. IV ACCESS TO LAC PATENT AND INTACT NO REDNESS OR INFILTRATION NOTED. KEPT CLEAN DRY AND COMFORTABLE CALL LIGHT WITHIN EASY REACH, WILL CONTINUE TO MONITOR
[2017-12-18 08:00] VITALS: BP 144/84
--- NOTE | 2017-12-18 08:00 | NUR ---
RN NOTES TAKEN TO NUCLEAR MEDICINE FOR STRESS TEST
[2017-12-18 08:30] VITALS: BP 144/84
[2017-12-18] MEDS ORDERED: REGADENOSON 0.4 MG/5 ML DISP.SYRIN IVP ONE (08:30)
[2017-12-18] MEDS: INSULIN REGULAR, HUMAN 100 UNIT/ML 3 ML VIAL SQ PRN ×2 (08:58→12:13)
[2017-12-18] MEDS: ASPIRIN EC 81 MG TABLET.DR PO SCH (09:00)
[2017-12-18] MEDS: HYDROCHLOROTHIAZIDE 25 MG TABLET PO SCH (09:02)
[2017-12-18] MEDS: AMLODIPINE BESYLATE 5 MG TABLET PO SCH (09:04)
[2017-12-18 10:06] VITALS: BP 148/92
[2017-12-18] MEDS: CARVEDILOL 12.5 MG TABLET PO SCH (10:06)
[2017-12-18] MEDS: BENAZEPRIL HCL 20 MG TABLET PO SCH (10:06)
--- NOTE | 2017-12-18 15:30 | NUR ---
RN NOTES PATIENT WITH DISCHARGE ORDERS, NO SKIN PROBLEMS AT THIS TIME, WILL CONTINUE TO MONITOR AND ASSIST WITH DISCHARGE PROCESS
--- NOTE | 2017-12-18 16:22 | NUR ---
INSURANCE ACCOUNT SPECIALIST NOTES PATIENT AWAKE ALERT AND VERBALLY RESPONSIVE, ABLE TO MAKE NEEDS KNOWN WITH DISCHARGE ORDERS, REQUESTING TAXI VOUCHER, RN SUPERVISOR BRAKE REPAIR AWARE. IN NO APPARENT PAIN OR DISCOMFORT AT THIS TIME. IV ACCESS AND ID BAND REMOVED WITH NO ASE NOTED.ALL DISCHARGE INSTRUCTIONS PROVIDED, WITH NOTED VERBAL UNDERSTANDING. ALL BELONGINGS ACCOUNTED FOR. ASSISTED TO LOBBY BY RN, DISCHARGED IN STABLE CONDITION
== END 2017-12-18 16:23 | disposition home or self-care (01) | DRG 206 ==
LOC: ER 04:20 → TELE1 05:45 → MEDSG1 12-18 08:53
PROVIDERS: ADMIT Nurse Practitioner Acute Care; ATTEND Nurse Practitioner Acute Care
DX: M94.0 Chondrocostal junction syndrome [Tietze] (principal); E11.9 Type 2 diabetes mellitus without complications; E66.9 Obesity, unspecified; I25.2 Old myocardial infarction; I10 Essential (primary) hypertension; N20.0 Calculus of kidney; E78.5 Hyperlipidemia, unspecified; Z87.442 Personal history of urinary calculi; Z79.84 Long term (current) use of oral hypoglycemic drugs; Z68.31 Body mass index [BMI] 31.0-31.9, adult; R00.2 Palpitations
CPT/HCPCS: 36415; 80048-TC; 80061-TC; 82306; 82962-TC; 83735-TC; 84100-TC; 84439-TC; 84443-TC; 84484-TC; 85025-TC; 93307-TC; A4606; A9502; J1815; J2785; J7030; Z7610

== ENCOUNTER 2020-05-08 09:33 | Emergency (ER) | payer BC, MEDICAID, OTHER ==
[~2020-05-08] VITALS: Ht 162.6 cm; Wt 81.6 kg
[~2020-05-08 09:33] MED LIST changes: -AMLO5TAB2 PO; +AMLO5TAB9 PO; -PRED20TA PO
--- NOTE | 2020-05-08 09:35 | NUR ---
BIB SELF C/O BACK PAIN FOR 10 DAYS. SEEN BY PMD LAST SUNDAY. TO ER BED 9, HOOKED TO MONITOR, CHANGED TO HOSP GOWN, WARM BLANKET PROVIDED, PATIENT AAO x 4, BREATHING EVEN AND UNLABORED. DR ARAUJO AT BEDSIDE.
[2020-05-08] MEDS ORDERED: KETOROLAC TROMETHAMINE 15 MG/ML VIAL ONE (09:57)
[2020-05-08] MEDS ORDERED: KETOROLAC TROMETHAMINE INJ 30 MG/ML VIAL IM ONE (10:00)
--- NOTE | 2020-05-08 10:00 | NUR ---
URINE SPECIMEN COLLECTED AND SENT TO LAB.
--- NOTE | 2020-05-08 10:02 | NUR ---
ER PHLEB AT BEDSIDE FOR BLOOD DRAW.
[2020-05-08 10:11] LABS: APPEARANCE,URINE Clear (CLEAR); BILIRUBIN,URINE Negative (NEGATIVE); BLOOD, URINE Negative Ery/uL (NEGATIVE); COLOR,URINE Yellow (YELLOW); KETONES,URINE Trace (NEGATIVE); LEUKOCYTE ESTERASE ,URINE Negative (NEGATIVE); NITRITE, URINE Negative (NEGATIVE); PH,URINE 7.5 (5.0-8.0); PROTEIN,URINE Negative (NEGATIVE); UGLUCOSE >=1000 mg/dL (NEGATIVE); UROBILINOGEN,URINE 0.2 EU/dL (0.2)
[2020-05-08 10:13] LABS: BACTERIA,URINE Rare /HPF (None Seen); RBC,URINE 0-2 /HPF (0-2); SQUAMOUS EPITHELIAL CELL,UR Few /HPF (None Seen); WBC,URINE 0-2 /HPF (0-3)
[2020-05-08 10:17] LABS: BASOPHILS # (AUTO) 0.1 /CMM (0.0-0.2); BASOPHILS % (AUTO) 0.9 % (0.0-2.0); EOSINOPHILS % (AUTO) 1.6 % (0.0-6.0); HEMATOCRIT 49 % (39-51); LYMPHOCYTES # (AUTO) 1.7 /CMM (0.8-4.8); LYMPHOCYTES % (AUTO) 20.9 % (20.0-44.0); MEAN CORPUSCULAR HGB CONC 35 g/dl (31.0-36.0); MEAN CORPUSCULAR VOLUME 92 fL (80-96); MONOCYTES # (AUTO) 0.6 /CMM (0.1-1.30); MONOCYTES % (AUTO) 7.2 % (2.0-12.0); NEUTROPHILS # (AUTO) 5.7 /CMM (1.8-8.9); NEUTROPHILS % (AUTO) 69.4 % (43.0-81.0); PLATELET COUNT (AUTO) 141 /CMM (150-450); RED BLOOD CELL COUNT(AUTO) 5.37 MIL/uL (4.5-6.0); WHITE BLOOD COUNT (AUTO) 8.2 K/uL (4.3-11.0)
[2020-05-08 10:29] LABS: ALBUMIN 4.3 g/dL (3.4-5.0); BILIRUBIN,DIRECT 0.1 mg/dL (0.0-0.2); BILIRUBIN,TOTAL 0.5 mg/dL (0.2-1.0); CREATININE 1.2 mg/dL (0.6-1.3); POTASSIUM 3.9 mmol/L (3.5-5.1); TOTAL PROTEIN, SERUM 7.9 g/dL (6.4-8.2)
--- NOTE | 2020-05-08 11:18 | NUR ---
Patient discharged to home in stable condition. Written and verbal after care instructions given. Patient verbalizes understanding of instruction.
[2020-05-08 11:19] VITALS: BP 149/101
== END 2020-05-08 11:19 | disposition home or self-care (01) ==
LOC: ER 09:35
DX: M54.5 Low back pain (principal); N20.0 Calculus of kidney; R74.8 Abnormal levels of other serum enzymes; E11.65 Type 2 diabetes mellitus with hyperglycemia; I10 Essential (primary) hypertension; I25.2 Old myocardial infarction; Z79.899 Other long term (current) drug therapy; Z79.82 Long term (current) use of aspirin
CPT/HCPCS: 36415; 74176; 80048; 80076; 81001; 83690; 85025; 96372; 99284; J1885; 81000-TC

== ENCOUNTER 2020-07-25 17:51 | Emergency (ER) | payer OTHER ==
[~2020-07-25] VITALS: Ht 165.1 cm; Wt 84.8 kg
--- NOTE | 2020-07-25 17:57 | NUR ---
CAME IN AND STATES "WAS SENT HERE FROM URGENT CARE, HAD TINGLING SENSATION IN MY L MIDDLE AND RING FINGER x 2 DAYS". TO ER BED 1, DENIES CHEST PAIN AT THIS TIME, HOOKED TO YARD JOCKEY AND POX, CHANGED TO HOSP GOWN, WARM BLANKLET PROVIDED, PATIENT AAO x 4, BREATHING EVEN AND UNLABORED. AWAITING MD RIVERA
--- NOTE | 2020-07-25 17:59 | NUR ---
ADEOLA ALANIS AT BEDSIDE FOR EVAL.
[2020-07-25 18:12] LABS: BASOPHILS # (AUTO) 0.1 /CMM (0.0-0.2); BASOPHILS % (AUTO) 0.9 % (0.0-2.0); EOSINOPHILS % (AUTO) 1.4 % (0.0-6.0); HEMATOCRIT 47 % (39-51); HEMOGLOBIN 15.8 g/dL (13.5-17.5); LYMPHOCYTES # (AUTO) 1.9 /CMM (0.8-4.8); LYMPHOCYTES % (AUTO) 25.6 % (20.0-44.0); MEAN CORPUSCULAR HGB CONC 33 g/dl (31.0-36.0); MEAN CORPUSCULAR VOLUME 94 fL (80-96); MONOCYTES # (AUTO) 0.9 /CMM (0.1-1.30); MONOCYTES % (AUTO) 11.4 % (2.0-12.0); NEUTROPHILS # (AUTO) 4.6 /CMM (1.8-8.9); NEUTROPHILS % (AUTO) 60.7 % (43.0-81.0); PLATELET COUNT (AUTO) 131 /CMM (150-450); RED BLOOD CELL COUNT(AUTO) 5.04 MIL/uL (4.5-6.0); WHITE BLOOD COUNT (AUTO) 7.6 K/uL (4.3-11.0)
--- NOTE | 2020-07-25 18:13 | NUR ---
deburring technician at bedside
[2020-07-25 18:18] LABS: CARBON DIOXIDE 27 mmol/L (21-32); CHLORIDE 100 mmol/L (98-107); CREATININE 1.1 mg/dL (0.6-1.3); GLUCOSE 179 mg/dL (74-106); POTASSIUM 3.8 mmol/L (3.5-5.1); SODIUM SERUM 139 mmol/L (136-145); UREA NITROGEN, BLOOD 37 mg/dL (7-18)
--- NOTE | 2020-07-25 18:22 | NUR ---
MID LEVEL GAME DESIGNER AT BEDSIDE FOR XRAY
[2020-07-25 18:30] LABS: ALANINE AMINOTRANSFERASE 34 U/L (12-78); ALBUMIN 4.3 g/dL (3.4-5.0); ALKALINE PHOSPHATASE 62 U/L (46-116); ASPARTATE AMINOTRANSFERASE 23 U/L (15-37); B-TYPE NATRIURETIC PEPTIDE 27 PG/ML (0-125); BILIRUBIN,DIRECT 0.1 mg/dL (0.0-0.2); BILIRUBIN,TOTAL 0.4 mg/dL (0.2-1.0); TOTAL PROTEIN, SERUM 8.3 g/dL (6.4-8.2)
[2020-07-25] MEDS ORDERED: ASPIRIN 81 MG TAB.CHEW PO ONE (18:30)
[2020-07-25] MEDS ORDERED: IV NS 0.9% 500 ML BAG IV ONE (18:30)
[2020-07-25] MEDS ORDERED: ASPIRIN 81 MG TAB.CHEW ONE (18:35)
[2020-07-25 19:24] VITALS: BP 143/80
== END 2020-07-25 19:24 | disposition home or self-care (01) ==
LOC: ER 17:53
DX: R20.2 Paresthesia of skin (principal); E11.9 Type 2 diabetes mellitus without complications; E78.5 Hyperlipidemia, unspecified; I11.0 Hypertensive heart disease with heart failure; I50.30 Unspecified diastolic (congestive) heart failure; I73.9 Peripheral vascular disease, unspecified; E66.9 Obesity, unspecified; Z68.31 Body mass index [BMI] 31.0-31.9, adult; I25.2 Old myocardial infarction; Z79.899 Other long term (current) drug therapy; Z79.82 Long term (current) use of aspirin
CPT/HCPCS: 36415; 71045; 80048; 80076; 83880; 84484; 85025; 93005 ×3; 99285; J7040

== ENCOUNTER 2021-09-06 12:47 | Emergency (ER) | payer OTHER ==
[~2021-09-06] VITALS: Ht 160 cm; Wt 81.6 kg
[~2021-09-06 12:47] MED LIST changes: +AMLO-212 PO; -AMLO5TAB9 PO
--- NOTE | 2021-09-06 12:58 | NUR ---
covid + 2 weeks ago, c/o cough. PT AAOX4, VSS. RR EVEN & UNLABORED. DENIES CP, SOB, DIZZINESS, N/V AT THIS TIME. AWAITING EVAL BY ERNIE. MAURO CONT TO MONITOR.
--- NOTE | 2021-09-06 13:00 | NUR ---
DR. BAKER AT BS FOR EVAL.
[2021-09-06 13:25] LABS: HEMATOCRIT 46 % (39-51); HEMOGLOBIN 15.4 g/dL (13.5-17.5); MEAN CORPUSCULAR HGB CONC 33 g/dl (31.0-36.0); MEAN CORPUSCULAR VOLUME 93 fL (80-96); PLATELET COUNT (AUTO) 258 K/uL (150-450); RED BLOOD CELL COUNT(AUTO) 4.96 MIL/uL (4.5-6.0); WHITE BLOOD COUNT (AUTO) 8.9 K/uL (4.3-11.0)
[2021-09-06 13:36] LABS: CREATININE 1.1 mg/dL (0.6-1.3); POTASSIUM 4.2 mmol/L (3.5-5.1)
[2021-09-06] MEDS ORDERED: AMOX/CLAVULANATE 875 MG TABLET PO ONE (14:00)
[2021-09-06] MEDS ORDERED: AZITHROMYCIN 250 MG TABLET PO ONE (14:00)
[2021-09-06] MEDS ORDERED: AZITHROMYCIN 250 MG TABLET ONE (14:01)
[2021-09-06] MEDS ORDERED: AMOX/CLAVULANATE 875 MG TABLET ONE (14:02)
[2021-09-06] MEDS ORDERED: AMOX-430 PO (14:26)
[2021-09-06] MEDS ORDERED: AZIT250T13 PO (14:26)
--- NOTE | 2021-09-06 14:31 | NUR ---
PT TO CT VIA [facility].
[2021-09-06] MEDS ORDERED: IOHEXOL-350 100 ML VIAL IV ONE (14:41)
[2021-09-06] MEDS ORDERED: CT SWABBABLE VALVE TRANS SET 1 EA INFUS.SET MC ONE (14:41)
[2021-09-06 14:54] LABS: LYMPHOCYTES % (MANUAL) 9 % (16-48); MONOCYTES % (MANUAL) 14 % (0-11.0); NEUTROPHILS % (MANUAL) 75 (42-76)
[2021-09-06 14:55] LABS: EOSINOPHILS % (MANUAL) 2 % (0-4)
--- NOTE | 2021-09-06 15:00 | NUR ---
PT STABLE RR EVEN & UNLABORED. DENIES CP, SOB, DIZZINESS, N/V AT THIS TIME. WILL CONT TO MONITOR.
[2021-09-06 16:50] VITALS: BP 128/85
== END 2021-09-06 17:24 | disposition home or self-care (01) ==
LOC: ER 12:54
DX: J18.9 Pneumonia, unspecified organism (principal); R91.8 Other nonspecific abnormal finding of lung field; I10 Essential (primary) hypertension; Z87.442 Personal history of urinary calculi; Z79.82 Long term (current) use of aspirin; Z79.899 Other long term (current) drug therapy
CPT/HCPCS: 36415; 71045; 71275; 80048; 85007; 85025; 99285; Q9967

== ENCOUNTER 2021-09-22 12:39 | Emergency (ER) | payer BC, OTHER ==
[~2021-09-22] VITALS: Ht 172.7 cm; Wt 90.7 kg
[~2021-09-22 12:39] MED LIST changes: +AMOX-430 PO; +AZIT250T13 PO
--- NOTE | 2021-09-22 13:05 | NUR ---
BIBS FOR FEELING GENERALIZED WEAKNESS X 1 WEEK. DENIES PAIN. RESPIRATION REGULAR AND UNLABORED. WILL CONTINUE TO MONITOR THE PATIENT.
[2021-09-22] MEDS ORDERED: IV NS 0.9% 1,000 ML BAG IV ONE (14:00)
[2021-09-22 14:07] LABS: BASOPHILS # (AUTO) 0.1 K/uL (0.0-0.2); BASOPHILS % (AUTO) 0.9 % (0.0-2.0); EOSINOPHILS % (AUTO) 1.3 % (0.0-6.0); HEMATOCRIT 47 % (39-51); HEMOGLOBIN 16.1 g/dL (13.5-17.5); LYMPHOCYTES # (AUTO) 2.2 K/uL (0.8-4.8); LYMPHOCYTES % (AUTO) 24.1 % (20.0-44.0); MEAN CORPUSCULAR HGB CONC 34 g/dl (31.0-36.0); MEAN CORPUSCULAR VOLUME 93 fL (80-96); MONOCYTES # (AUTO) 1.1 K/uL (0.1-1.30); MONOCYTES % (AUTO) 11.9 % (2.0-12.0); NEUTROPHILS # (AUTO) 5.7 K/uL (1.8-8.9); NEUTROPHILS % (AUTO) 61.8 % (43.0-81.0); PLATELET COUNT (AUTO) 154 K/uL (150-450); RED BLOOD CELL COUNT(AUTO) 5.09 MIL/uL (4.5-6.0); WHITE BLOOD COUNT (AUTO) 9.2 K/uL (4.3-11.0)
[2021-09-22 14:14] LABS: CALCIUM, SERUM 9.1 mg/dL (8.5-10.1); POTASSIUM 3.8 mmol/L (3.5-5.1)
[2021-09-22 14:27] LABS: ALBUMIN 3.8 g/dL (3.4-5.0); BILIRUBIN,DIRECT 0.1 mg/dL (0.0-0.2); BILIRUBIN,TOTAL 0.3 mg/dL (0.2-1.0); TOTAL PROTEIN, SERUM 8.3 g/dL (6.4-8.2)
[2021-09-22] MEDS ORDERED: AZIT250T13 PO (14:33)
[2021-09-22 15:09] VITALS: BP 141/82
== END 2021-09-22 15:10 | disposition home or self-care (01) ==
LOC: ER 12:46
DX: R53.1 Weakness (principal); J18.9 Pneumonia, unspecified organism; I10 Essential (primary) hypertension; I25.2 Old myocardial infarction; E11.9 Type 2 diabetes mellitus without complications; Z79.899 Other long term (current) drug therapy; Z79.82 Long term (current) use of aspirin
CPT/HCPCS: 36415; 71045; 80048; 80076; 85025; 96360; 99284; J7030

== ENCOUNTER 2021-10-04 10:16 | Emergency (ER) | payer BC, OTHER ==
[~2021-10-04] VITALS: Ht 160 cm; Wt 81.6 kg
--- NOTE | 2021-10-04 10:25 | NUR ---
To ER bed 7, c/o dysuria x 6 days 09/04 ps, aaox3, breathing even and non labored, at bedside
[2021-10-04] MEDS ORDERED: KETOROLAC TROMETHAMINE 15 MG/ML VIAL ONE (10:39)
--- NOTE | 2021-10-04 10:51 | NUR ---
URINE COLLECTED AND SENT TO LAB
--- NOTE | 2021-10-04 10:52 | NUR ---
SALINE LOCK ESTABLISHED, BLOOD DRAWN AND SENT TO LAB
[2021-10-04 10:56] LABS: BASOPHILS # (AUTO) 0.1 K/uL (0.0-0.2); BASOPHILS % (AUTO) 0.5 % (0.0-2.0); EOSINOPHILS % (AUTO) 0.1 % (0.0-6.0); HEMATOCRIT 47 % (39-51); HEMOGLOBIN 15.7 g/dL (13.5-17.5); LYMPHOCYTES # (AUTO) 1.6 K/uL (0.8-4.8); LYMPHOCYTES % (AUTO) 8.2 % (20.0-44.0); MEAN CORPUSCULAR HGB CONC 33 g/dl (31.0-36.0); MEAN CORPUSCULAR VOLUME 94 fL (80-96); MONOCYTES # (AUTO) 1.5 K/uL (0.1-1.30); MONOCYTES % (AUTO) 7.5 % (2.0-12.0); NEUTROPHILS # (AUTO) 16.7 K/uL (1.8-8.9); NEUTROPHILS % (AUTO) 83.7 % (43.0-81.0); PLATELET COUNT (AUTO) 107 K/uL (150-450)
[2021-10-04] MEDS ORDERED: KETOROLAC TROMETHAMINE INJ 30 MG/ML VIAL IV ONE (11:00)
[2021-10-04] MEDS ORDERED: IV NS 0.9% 1,000 ML BAG IV ONE ×2 (11:00→11:30)
[2021-10-04 11:03] LABS: BILIRUBIN,URINE Negative (NEGATIVE); COLOR,URINE YELLOW (YELLOW); LEUKOCYTE ESTERASE ,URINE Trace (NEGATIVE); NITRITE, URINE Negative (NEGATIVE); PROTEIN,URINE Negative (NEGATIVE); UGLUCOSE >=1000 mg/dL (NEGATIVE); UROBILINOGEN,URINE 0.2 EU/dL (0.2)
[2021-10-04 11:05] LABS: CALCIUM, SERUM 9.4 mg/dL (8.5-10.1); CREATININE 1.2 mg/dL (0.6-1.3); POTASSIUM 3.8 mmol/L (3.5-5.1)
[2021-10-04 11:10] LABS: ALBUMIN 3.6 g/dL (3.4-5.0); BILIRUBIN,DIRECT 0.2 mg/dL (0.0-0.2); BILIRUBIN,TOTAL 0.6 mg/dL (0.2-1.0); TOTAL PROTEIN, SERUM 8.4 g/dL (6.4-8.2)
[2021-10-04 11:18] LABS: BACTERIA,URINE Moderate /HPF (None Seen); SQUAMOUS EPITHELIAL CELL,UR Rare /HPF (None Seen)
[2021-10-04] MEDS: CEFTAZIDIME 1 G in IV D5W 50 ML IV ONE ×2 (11:37→11:59)
[2021-10-04] MEDS ORDERED: IBUP-1957 PO (12:18)
[2021-10-04] MEDS ORDERED: CEPH500C2 PO (12:18)
[2021-10-04] MEDS ORDERED: TAMS-12 PO (12:18)
[2021-10-04 12:30] VITALS: BP 143/77
== END 2021-10-04 12:31 | disposition home or self-care (01) ==
LOC: ER 10:22
DX: N12 Tubulo-interstitial nephritis, not specified as acute or chronic (principal); E11.65 Type 2 diabetes mellitus with hyperglycemia; E86.0 Dehydration; R00.0 Tachycardia, unspecified; I10 Essential (primary) hypertension; Z87.442 Personal history of urinary calculi; Z79.82 Long term (current) use of aspirin; Z79.899 Other long term (current) drug therapy
CPT/HCPCS: 36415; 74176; 80048; 80076; 81001; 83605; 85025; 85378; 85730; 87040 ×2; 87077; 87086; 87186; 93005; 96361; 96365; 96375; 99285; J0713; J1885; J7030 ×2; J7060

== ENCOUNTER 2022-03-02 18:44 | Emergency (ER) | payer BC, OTHER ==
[~2022-03-02] VITALS: Ht 162.6 cm; Wt 81.6 kg
[~2022-03-02 18:44] MED LIST changes: +CEPH500C2 PO; +IBUP-1957 PO; +TAMS-12 PO
--- NOTE | 2022-03-02 19:00 | NUR ---
"Back/flank Pain x2-3 weeks worse now", pt aaox4, denies sob/cp. not in acute distress. placed on monitor. pending er provider juany
--- NOTE | 2022-03-02 19:22 | NUR ---
URINE SPECIMEN SENT TO LAB
[2022-03-02 20:36] LABS: BILIRUBIN,URINE NEGATIVE (NEGATIVE); COLOR,URINE YELLOW (YELLOW); LEUKOCYTE ESTERASE ,URINE NEGATIVE (NEGATIVE); NITRITE, URINE NEGATIVE (NEGATIVE); PH,URINE 5.5 (5.0-8.0); PROTEIN,URINE NEGATIVE (NEGATIVE); UGLUCOSE >=1000 mg/dL (NEGATIVE); UROBILINOGEN,URINE 0.2 EU/dL (0.2)
[2022-03-02 20:41] LABS: ALBUMIN 3.9 g/dL (3.4-5.0); BILIRUBIN,DIRECT 0.1 mg/dL (0.0-0.2); BILIRUBIN,TOTAL 0.3 mg/dL (0.2-1.0); CALCIUM, SERUM 9.6 mg/dL (8.5-10.1); POTASSIUM 3.6 mmol/L (3.5-5.1); TOTAL PROTEIN, SERUM 7.8 g/dL (6.4-8.2)
[2022-03-02 20:43] LABS: BASOPHILS # (AUTO) 0.1 K/uL (0.0-0.2); BASOPHILS % (AUTO) 0.8 % (0.0-2.0); EOSINOPHILS % (AUTO) 2.8 % (0.0-6.0); HEMATOCRIT 47 % (39-51); HEMOGLOBIN 15.5 g/dL (13.5-17.5); LYMPHOCYTES # (AUTO) 2.4 K/uL (0.8-4.8); LYMPHOCYTES % (AUTO) 31.1 % (20.0-44.0); MEAN CORPUSCULAR HGB CONC 33 g/dl (31.0-36.0); MEAN CORPUSCULAR VOLUME 95 fL (80-96); MONOCYTES % (AUTO) 13.4 % (2.0-12.0); NEUTROPHILS % (AUTO) 51.9 % (43.0-81.0); PLATELET COUNT (AUTO) 129 K/uL (150-450); RED BLOOD CELL COUNT(AUTO) 4.93 MIL/uL (4.5-6.0); WHITE BLOOD COUNT (AUTO) 7.7 K/uL (4.3-11.0)
[2022-03-02 20:58] LABS: BACTERIA,URINE None seen /HPF (None Seen); RBC,URINE 0-2 /HPF (0-2); WBC,URINE 0-2 /HPF (0-3)
[2022-03-02] MEDS ORDERED: CYCL5TAB PO ×2 (21:47→21:58)
--- NOTE | 2022-03-02 22:01 | NUR ---
Patient discharged to home in stable condition. Written and verbal after care instructions given. Patient verbalizes understanding of instruction.
[2022-03-02 22:04] VITALS: BP 139/80
== END 2022-03-02 22:04 | disposition home or self-care (01) ==
LOC: ER 18:46
DX: N20.0 Calculus of kidney (principal); M54.50 Low back pain, unspecified; I10 Essential (primary) hypertension; I25.2 Old myocardial infarction; E11.9 Type 2 diabetes mellitus without complications; Z79.899 Other long term (current) drug therapy; Z79.82 Long term (current) use of aspirin
CPT/HCPCS: 36415; 80048-TC; 80076-TC; 81001; 83690-TC; 85025-TC

== ENCOUNTER 2022-11-29 22:41 | Emergency (ER) | payer BC, OTHER ==
[~2022-11-29] VITALS: Ht 160 cm; Wt 81.6 kg
[~2022-11-29 22:41] MED LIST changes: +CYCL5TAB PO
[2022-11-29 23:33] LABS: BASOPHILS # (AUTO) 0.1 K/uL (0.0-0.2); BASOPHILS % (AUTO) 0.8 % (0.0-2.0); EOSINOPHILS % (AUTO) 2.3 % (0.0-6.0); HEMATOCRIT 47 % (39-51); HEMOGLOBIN 15.4 g/dL (13.5-17.5); LYMPHOCYTES # (AUTO) 2.2 K/uL (0.8-4.8); LYMPHOCYTES % (AUTO) 26.3 % (20.0-44.0); MEAN CORPUSCULAR HGB CONC 33 g/dl (31.0-36.0); MEAN CORPUSCULAR VOLUME 94 fL (80-96); MONOCYTES # (AUTO) 0.9 K/uL (0.1-1.30); MONOCYTES % (AUTO) 10.9 % (2.0-12.0); NEUTROPHILS % (AUTO) 59.7 % (43.0-81.0); PLATELET COUNT (AUTO) 121 K/uL (150-450); RED BLOOD CELL COUNT(AUTO) 4.96 MIL/uL (4.5-6.0); WHITE BLOOD COUNT (AUTO) 8.5 K/uL (4.3-11.0)
[2022-11-29 23:55] LABS: CARBON DIOXIDE 22 mmol/L (21-32); CHLORIDE 99 mmol/L (98-107); GLUCOSE 269 mg/dL (74-106); POTASSIUM 3.4 mmol/L (3.5-5.1); SODIUM SERUM 131 mmol/L (136-145); UREA NITROGEN, BLOOD 45 mg/dL (7-18)
[2022-11-30 00:06] LABS: ALANINE AMINOTRANSFERASE 43 U/L (12-78); ALBUMIN 3.7 g/dL (3.4-5.0); ALKALINE PHOSPHATASE 66 U/L (46-116); ASPARTATE AMINOTRANSFERASE 29 U/L (15-37); BILIRUBIN,DIRECT 0.1 mg/dL (0.0-0.2); BILIRUBIN,TOTAL 0.3 mg/dL (0.2-1.0); TOTAL PROTEIN, SERUM 7.4 g/dL (6.4-8.2)
[2022-11-30] MEDS ORDERED: *INSULIN REGULAR(HUMULIN R)HUM 100 UNIT/ML VIAL SQ PRN (02:30)
[2022-11-30] MEDS ORDERED: INSULIN REGULAR, HUMAN 100 UNIT/ML 3 ML VIAL SQ PRN (02:30)
[2022-11-30] MEDS ORDERED: ENOXAPARIN SODIUM 40 MG/0.4 ML DISP.SYRIN SQ SCH (02:30)
[2022-11-30] MEDS ORDERED: ZOLPIDEM TARTRATE 5 MG TABLET PO PRN (02:30)
[2022-11-30] MEDS ORDERED: DEXTROSE 50%-WATER 50 ML DISP.SYRIN IV PRN (02:30)
[2022-11-30] MEDS ORDERED: MAGNESIUM HYDROXIDE 30 ML UDC PO PRN (02:30)
[2022-11-30] MEDS ORDERED: Z GUARD REMEDY 4 OZ OINT TP PRN (02:30)
[2022-11-30] MEDS ORDERED: MAG HYDROX/AL HYDROX/SIMETH 30 ML UDC PO PRN (02:30)
[2022-11-30] MEDS ORDERED: ACETAMINOPHEN 325 MG TABLET PO PRN (02:30)
[2022-11-30] MEDS ORDERED: ONDANSETRON HCL/PF 4 MG/2 ML VIAL IVP PRN (02:30)
[2022-11-30 05:56] VITALS: BP 141/79
[2022-11-30] MEDS ORDERED: BLOOD SUGAR DIAGNOSTIC 1 EACH STRIP VI SCH (07:30)
[2022-11-30] MEDS ORDERED: PANTOPRAZOLE 40 MG TABLET.DR PO SCH (07:30)
== END 2022-11-30 05:56 | disposition home or self-care (01) ==
LOC: ER 22:42
DX: R20.2 Paresthesia of skin (principal); I10 Essential (primary) hypertension; I21.4 Non-ST elevation (NSTEMI) myocardial infarction; E11.9 Type 2 diabetes mellitus without complications; Z87.442 Personal history of urinary calculi; Z79.899 Other long term (current) drug therapy
CPT/HCPCS: 36415; 71045-TC; 80048-TC; 80076-TC; 84484-TC; 85025-TC

== ENCOUNTER 2023-04-13 14:28 | Emergency (ER) | payer BC, OTHER ==
[~2023-04-13] VITALS: Ht 160 cm; Wt 81.6 kg
--- NOTE | 2023-04-13 14:45 | NUR ---
PT BIB SELF SENT FROM URGENT CARE C/O DULL CHEST PAIN WITH SHORTNESS OF BREATH AROUND 4AM TODAY. PT IS AAOX4, NOT IN RESPIRATORY DISTRESS, HOOKED TO HOUSEKEEPER HOME, KEPT RESTED AND COMFORTABLE. WILL CONTINUE TO MONITOR.
--- NOTE | 2023-04-13 14:50 | NUR ---
PT CC REPORTED TO .
[2023-04-13] MEDS ORDERED: ASPIRIN 325 MG TABLET PO ONE (15:30)
[2023-04-13 15:34] LABS: BASOPHILS # (AUTO) 0.1 K/uL (0.0-0.2); BASOPHILS % (AUTO) 0.7 % (0.0-2.0); EOSINOPHILS % (AUTO) 1.6 % (0.0-6.0); HEMATOCRIT 49 % (39-51); HEMOGLOBIN 15.8 g/dL (13.5-17.5); LYMPHOCYTES # (AUTO) 1.7 K/uL (0.8-4.8); LYMPHOCYTES % (AUTO) 22.8 % (20.0-44.0); MEAN CORPUSCULAR HGB CONC 32 g/dl (31.0-36.0); MEAN CORPUSCULAR VOLUME 95 fL (80-96); MONOCYTES # (AUTO) 0.8 K/uL (0.1-1.30); MONOCYTES % (AUTO) 10.8 % (2.0-12.0); NEUTROPHILS # (AUTO) 4.9 K/uL (1.8-8.9); NEUTROPHILS % (AUTO) 64.1 % (43.0-81.0); PLATELET COUNT (AUTO) 123 K/uL (150-450); RED BLOOD CELL COUNT(AUTO) 5.15 MIL/uL (4.5-6.0); WHITE BLOOD COUNT (AUTO) 7.6 K/uL (4.3-11.0)
[2023-04-13] MEDS ORDERED: ASPIRIN 325 MG TABLET ONE (15:48)
[2023-04-13 15:54] LABS: ALANINE AMINOTRANSFERASE 52 U/L (12-78); ALKALINE PHOSPHATASE 85 U/L (46-116); ASPARTATE AMINOTRANSFERASE 26 U/L (15-37); BILIRUBIN,DIRECT 0.1 mg/dL (0.0-0.2); BILIRUBIN,TOTAL 0.4 mg/dL (0.2-1.0); CALCIUM, SERUM 9.3 mg/dL (8.5-10.1); CARBON DIOXIDE 27 mmol/L (21-32); CHLORIDE 105 mmol/L (98-107); CREATININE 1.1 mg/dL (0.6-1.3); GLUCOSE 188 mg/dL (74-106); POTASSIUM 4.1 mmol/L (3.5-5.1); SODIUM SERUM 141 mmol/L (136-145); TOTAL PROTEIN, SERUM 7.7 g/dL (6.4-8.2); UREA NITROGEN, BLOOD 38 mg/dL (7-18)
[2023-04-13] MEDS ORDERED: ASPI-1420 PO (16:39)
[2023-04-13] MEDS ORDERED: EMPA1TAB PO (16:39)
[2023-04-13] MEDS ORDERED: NATE120T6 PO (16:39)
[2023-04-13 18:15] VITALS: BP 152/86
== END 2023-04-13 18:15 | disposition left against medical advice (07) ==
LOC: ER 15:15
DX: R07.89 Other chest pain (principal); I10 Essential (primary) hypertension; E11.9 Type 2 diabetes mellitus without complications; Z87.442 Personal history of urinary calculi; Z79.899 Other long term (current) drug therapy; Z20.822 Contact with and (suspected) exposure to COVID-19
CPT/HCPCS: 99285; 71045; 87426; 93005; 85025; 80048; 80076; 36415; 84484; 83880; 82962; C9803

== ENCOUNTER 2024-04-18 10:47 | Emergency (ER) | payer BC, OTHER ==
[~2024-04-18] VITALS: Ht 160 cm; Wt 81.6 kg
[~2024-04-18 10:47] MED LIST changes: -AMOX-430 PO; +ASPI-1420 PO; -ASPI-605 PO; -AZIT250T13 PO; -CARV12.52 PO; -CEPH500C2 PO; -CYCL5TAB PO; -DAPA5TAB PO; +EMPA1TAB PO; -IBUP-1957 PO; +NATE120T6 PO; -TAMS-12 PO; -[UNRECOGNIZED DRUG - REMARK]
[2024-04-18 11:51] LABS: APPEARANCE,URINE Clear (CLEAR); BILIRUBIN,URINE Negative (NEGATIVE); BLOOD, URINE Large Ery/uL (NEGATIVE); COLOR,URINE YELLOW (YELLOW); KETONES,URINE Negative (NEGATIVE); LEUKOCYTE ESTERASE ,URINE Trace (NEGATIVE); NITRITE, URINE Negative (NEGATIVE); PROTEIN,URINE Trace mg/dl (NEGATIVE); UGLUCOSE >=1000 mg/dL (NEGATIVE); UROBILINOGEN,URINE 0.2 EU/dL (0.2)
[2024-04-18 12:01] LABS: ADD URINE CULTURE YES; BACTERIA,URINE Few /HPF (None Seen); RBC,URINE 21-50 /HPF (0-2); SQUAMOUS EPITHELIAL CELL,UR Few /HPF (None Seen); WBC,URINE 21-50 /HPF (0-3)
[2024-04-18 12:15] LABS: BASOPHILS # (AUTO) 0.1 K/uL (0.0-0.2); BASOPHILS % (AUTO) 0.6 % (0.0-2.0); EOSINOPHILS # (AUTO) 0.1 K/uL (0.0-0.7); EOSINOPHILS % (AUTO) 0.9 % (0.0-6.0); HEMATOCRIT 48 % (39-51); HEMOGLOBIN 15.8 g/dL (13.5-17.5); LYMPHOCYTES # (AUTO) 1.5 K/uL (0.8-4.8); LYMPHOCYTES % (AUTO) 13.4 % (20.0-44.0); MEAN CORPUSCULAR HEMOGLOBIN 31 PG (26.0-33.0); MEAN CORPUSCULAR HGB CONC 33 g/dl (31.0-36.0); MEAN CORPUSCULAR VOLUME 92 fL (80-96); MONOCYTES # (AUTO) 0.9 K/uL (0.1-1.30); MONOCYTES % (AUTO) 8.2 % (2.0-12.0); NEUTROPHILS # (AUTO) 8.5 K/uL (1.8-8.9); NEUTROPHILS % (AUTO) 76.9 % (43.0-81.0); PLATELET COUNT (AUTO) 133 K/uL (150-450); RED BLOOD CELL COUNT(AUTO) 5.13 MIL/uL (4.5-6.0); RED CELL DISTRIBUTION WIDTH 14.2 % (11.5-15.0)
[2024-04-18 12:24] LABS: CALCIUM, SERUM 9.2 mg/dL (8.5-10.1); CREATININE 1.3 mg/dL (0.6-1.3); POTASSIUM 4.4 mmol/L (3.5-5.1)
[2024-04-18] MEDS ORDERED: CEFTRIAXONE 1GM BAG (ER ONLY) 50 ML IV ONE (12:41)
[2024-04-18] MEDS: IV NS 0.9% 1,000 ML BAG IV ONE (12:49)
[2024-04-18] MEDS: CEFTRIAXONE 1 G in IV D5W 50 ML IV ONE (12:50)
[2024-04-18] MEDS ORDERED: CEPH500C2 PO (13:03)
[2024-04-18 14:11] VITALS: TEMP 97.8
[2024-04-18 14:13] VITALS: BP 130/74; O2SAT 94
[2024-04-20 08:09] LABS: CHLAMYDIA TRACHOMATIS NAA Negative (Negative); NEISSERIA GONORRHOEAE NAA Negative (Negative)
== END 2024-04-18 13:40 | disposition home or self-care (01) ==
LOC: ER 10:52
DX: N30.00 Acute cystitis without hematuria (principal); N20.0 Calculus of kidney; I10 Essential (primary) hypertension; E11.9 Type 2 diabetes mellitus without complications; Z79.899 Other long term (current) drug therapy
CPT/HCPCS: 99285; 74176; 96365; 85025; 80048; 87086; 81001; 36415; 87491; 87591; J0696 ×2; J7060; J7030

== ENCOUNTER 2025-01-24 15:47 | Emergency (ER) | payer OTHER ==
[~2025-01-24] VITALS: Ht 160 cm; Wt 83.9 kg
[~2025-01-24 15:47] MED LIST changes: +CEPH500C2 PO
[2025-01-24 16:32] LABS: BASOPHILS % (AUTO) 0.3 % (0.0-2.0); EOSINOPHILS # (AUTO) 0.2 K/uL (0.0-0.7); EOSINOPHILS % (AUTO) 1.4 % (0.0-6.0); HEMATOCRIT 44 % (39-51); LYMPHOCYTES # (AUTO) 1.7 K/uL (0.8-4.8); LYMPHOCYTES % (AUTO) 14.3 % (20.0-44.0); MEAN CORPUSCULAR HEMOGLOBIN 30 PG (26.0-33.0); MEAN CORPUSCULAR HGB CONC 34 g/dl (31.0-36.0); MEAN CORPUSCULAR VOLUME 90 fL (80-96); MONOCYTES # (AUTO) 1.1 K/uL (0.1-1.30); MONOCYTES % (AUTO) 9.5 % (2.0-12.0); NEUTROPHILS # (AUTO) 8.7 K/uL (1.8-8.9); NEUTROPHILS % (AUTO) 74.5 % (43.0-81.0); PLATELET COUNT (AUTO) 117 K/uL (150-450); RED BLOOD CELL COUNT(AUTO) 4.93 MIL/uL (4.5-6.0); RED CELL DISTRIBUTION WIDTH 14.9 % (11.5-15.0); WHITE BLOOD COUNT (AUTO) 11.7 K/uL (4.3-11.0)
[2025-01-24 16:45] LABS: CALCIUM, SERUM 9.2 mg/dL (8.5-10.1); CARBON DIOXIDE 26 mmol/L (21-32); CHLORIDE 101 mmol/L (98-107); CREATININE 1.1 mg/dL (0.6-1.3); GLUCOSE 329 mg/dL (74-106); POTASSIUM 4.2 mmol/L (3.5-5.1); SODIUM SERUM 136 mmol/L (136-145); UREA NITROGEN, BLOOD 34 mg/dL (7-18)
[2025-01-24 16:48] LABS: MAGNESIUM 1.9 mg/dL (1.8-2.4)
[2025-01-24 16:57] LABS: NT-PRO BNP 21 pg/mL (0-125)
[2025-01-24 17:00] LABS: THYROID STIMULATING HORMONE 0.68 uIU/mL (0.358-3.74)
[2025-01-24 17:26] VITALS: BP 128/80; TEMP 98.6; O2SAT 95
== END 2025-01-24 17:27 | disposition home or self-care (01) ==
LOC: ER 16:06
DX: R00.2 Palpitations (principal); R06.03 Acute respiratory distress; E11.65 Type 2 diabetes mellitus with hyperglycemia; I10 Essential (primary) hypertension; I25.2 Old myocardial infarction; Z79.82 Long term (current) use of aspirin; Z79.84 Long term (current) use of oral hypoglycemic drugs; Z79.899 Other long term (current) drug therapy; Z87.442 Personal history of urinary calculi
CPT/HCPCS: 36415; 71045-TC; 80048-TC; 82962-TC; 83735-TC; 83880; 84439-TC; 84443-TC; 84484-TC; 85025-TC

== ENCOUNTER 2025-01-25 18:30 | Emergency (ER) | payer OTHER ==
[~2025-01-25] VITALS: Ht 160 cm; Wt 81.6 kg
[2025-01-25 20:24] VITALS: TEMP 98; O2SAT 100
[2025-01-25 21:02] VITALS: BP 140/83
[2025-01-25] MEDS: ASPIRIN 325 MG TABLET PO ONE (21:02)
[2025-01-25] MEDS: NITROGLYCERIN 0.4 MG/TAB BOTTLE SL ONE (21:02)
== END 2025-01-25 21:03 | disposition left against medical advice (07) ==
LOC: ER 18:30
DX: R07.89 Other chest pain (principal); E11.9 Type 2 diabetes mellitus without complications; I10 Essential (primary) hypertension; I25.2 Old myocardial infarction; Z79.82 Long term (current) use of aspirin; Z79.84 Long term (current) use of oral hypoglycemic drugs; Z79.899 Other long term (current) drug therapy; Z87.442 Personal history of urinary calculi; Z53.29 Procedure and treatment not carried out because of patient's decision for other reasons
CPT/HCPCS: 82962-TC

== ENCOUNTER 2025-01-26 14:23 | Emergency (ER) | payer OTHER ==
[~2025-01-26] VITALS: Ht 160 cm; Wt 81.6 kg
[2025-01-26 16:34] LABS: BASOPHILS # (AUTO) 0.1 K/uL (0.0-0.2); BASOPHILS % (AUTO) 0.9 % (0.0-2.0); EOSINOPHILS # (AUTO) 0.2 K/uL (0.0-0.7); HEMATOCRIT 46 % (39-51); HEMOGLOBIN 15.6 g/dL (13.5-17.5); LYMPHOCYTES # (AUTO) 2.2 K/uL (0.8-4.8); LYMPHOCYTES % (AUTO) 22.2 % (20.0-44.0); MEAN CORPUSCULAR HEMOGLOBIN 31 PG (26.0-33.0); MEAN CORPUSCULAR HGB CONC 34 g/dl (31.0-36.0); MEAN CORPUSCULAR VOLUME 91 fL (80-96); MONOCYTES # (AUTO) 1.2 K/uL (0.1-1.30); MONOCYTES % (AUTO) 11.8 % (2.0-12.0); NEUTROPHILS # (AUTO) 6.2 K/uL (1.8-8.9); NEUTROPHILS % (AUTO) 63.1 % (43.0-81.0); PLATELET COUNT (AUTO) 123 K/uL (150-450); RED BLOOD CELL COUNT(AUTO) 5.04 MIL/uL (4.5-6.0); RED CELL DISTRIBUTION WIDTH 14.7 % (11.5-15.0); WHITE BLOOD COUNT (AUTO) 9.7 K/uL (4.3-11.0)
[2025-01-26 16:43] LABS: CALCIUM, SERUM 9.3 mg/dL (8.5-10.1); POTASSIUM 4.1 mmol/L (3.5-5.1)
[2025-01-26 16:59] LABS: APPEARANCE,URINE CLEAR (CLEAR); BILIRUBIN,URINE NEGATIVE (NEGATIVE); BLOOD, URINE 2+ Ery/uL (NEGATIVE); COLOR,URINE YELLOW (YELLOW); KETONES,URINE NEGATIVE (NEGATIVE); LEUKOCYTE ESTERASE ,URINE TRACE (NEGATIVE); NITRITE, URINE NEGATIVE (NEGATIVE); PH,URINE 6.5 (5.0-8.0); PROTEIN,URINE NEGATIVE (NEGATIVE); UGLUCOSE 3+ mg/dL (NEGATIVE); UROBILINOGEN,URINE 0.2 EU/dL (0.2)
[2025-01-26 17:22] VITALS: BP 132/66; TEMP 98.3; O2SAT 99
[2025-01-26 17:23] LABS: ADD URINE CULTURE YES; BACTERIA,URINE Rare /HPF (None Seen)
== END 2025-01-26 17:23 | disposition home or self-care (01) ==
LOC: ER 14:26
DX: R07.9 Chest pain, unspecified (principal); R42 Dizziness and giddiness; R06.02 Shortness of breath; E11.9 Type 2 diabetes mellitus without complications; I10 Essential (primary) hypertension; I25.2 Old myocardial infarction; Z79.82 Long term (current) use of aspirin; Z79.84 Long term (current) use of oral hypoglycemic drugs; Z79.899 Other long term (current) drug therapy; Z87.442 Personal history of urinary calculi
CPT/HCPCS: 36415; 80048-TC; 81001; 84484-TC; 85025-TC

== ENCOUNTER 2025-02-11 10:38 | Emergency (ER) | payer OTHER ==
[~2025-02-11] VITALS: Ht 154.9 cm; Wt 81.6 kg
[2025-02-11 11:15] LABS: BASOPHILS % (AUTO) 0.5 % (0.0-2.0); EOSINOPHILS # (AUTO) 0.2 K/uL (0.0-0.7); EOSINOPHILS % (AUTO) 2.3 % (0.0-6.0); HEMATOCRIT 44 % (39-51); HEMOGLOBIN 15.1 g/dL (13.5-17.5); LYMPHOCYTES # (AUTO) 1.7 K/uL (0.8-4.8); LYMPHOCYTES % (AUTO) 24.4 % (20.0-44.0); MEAN CORPUSCULAR HEMOGLOBIN 31 PG (26.0-33.0); MEAN CORPUSCULAR HGB CONC 35 g/dl (31.0-36.0); MEAN CORPUSCULAR VOLUME 90 fL (80-96); MONOCYTES # (AUTO) 0.8 K/uL (0.1-1.30); MONOCYTES % (AUTO) 10.7 % (2.0-12.0); NEUTROPHILS # (AUTO) 4.4 K/uL (1.8-8.9); NEUTROPHILS % (AUTO) 62.1 % (43.0-81.0); PLATELET COUNT (AUTO) 142 K/uL (150-450); RED BLOOD CELL COUNT(AUTO) 4.88 MIL/uL (4.5-6.0); RED CELL DISTRIBUTION WIDTH 14.7 % (11.5-15.0)
[2025-02-11 11:22] LABS: CALCIUM, SERUM 9.4 mg/dL (8.5-10.1)
[2025-02-11 11:28] LABS: ALBUMIN 3.8 g/dL (3.4-5.0); BILIRUBIN,DIRECT 0.1 mg/dL (0.0-0.2); BILIRUBIN,TOTAL 0.4 mg/dL (0.2-1.0); TOTAL PROTEIN, SERUM 7.7 g/dL (6.4-8.2)
[2025-02-11 12:00] LABS: APPEARANCE,URINE CLEAR (CLEAR); BILIRUBIN,URINE NEGATIVE (NEGATIVE); BLOOD, URINE NEGATIVE Ery/uL (NEGATIVE); COLOR,URINE YELLOW (YELLOW); KETONES,URINE NEGATIVE (NEGATIVE); LEUKOCYTE ESTERASE ,URINE NEGATIVE (NEGATIVE); NITRITE, URINE NEGATIVE (NEGATIVE); PH,URINE 6.5 (5.0-8.0); PROTEIN,URINE NEGATIVE (NEGATIVE); UGLUCOSE 3+ mg/dL (NEGATIVE); UROBILINOGEN,URINE 0.2 EU/dL (0.2)
[2025-02-11 12:25] LABS: ADD URINE CULTURE NO; BACTERIA,URINE Rare /HPF (None Seen); RBC,URINE 0-2 /HPF (0-2); SQUAMOUS EPITHELIAL CELL,UR None Seen /HPF (None Seen); WBC,URINE 0-2 /HPF (0-3)
[2025-02-11] MEDS ORDERED: KETOROLAC TROMETHAMINE 15 MG/ML VIAL ONE (12:45)
[2025-02-11] MEDS: IV NS 0.9% 1,000 ML BAG IV ONE (12:55)
[2025-02-11] MEDS: KETOROLAC TROMETHAMINE 15 MG/ML VIAL IV ONE (12:56)
[2025-02-11] MEDS ORDERED: LIDO30AD10 TP (13:22)
[2025-02-11] MEDS ORDERED: IBUP-1955 PO (13:22)
[2025-02-11 14:36] VITALS: BP 148/77; TEMP 98.3; O2SAT 99
== END 2025-02-11 14:38 | disposition home or self-care (01) ==
LOC: ER 10:46
DX: I88.0 Nonspecific mesenteric lymphadenitis (principal); R10.84 Generalized abdominal pain; I10 Essential (primary) hypertension; E11.9 Type 2 diabetes mellitus without complications; I25.2 Old myocardial infarction; E86.0 Dehydration; Z79.82 Long term (current) use of aspirin; Z79.84 Long term (current) use of oral hypoglycemic drugs; Z79.899 Other long term (current) drug therapy; Z87.440 Personal history of urinary (tract) infections; Z87.442 Personal history of urinary calculi
CPT/HCPCS: 99285; 74176; 96374; 96361; 85025; 80048; 83690; 80076; 81001; 36415; J1885; J7030

== ENCOUNTER 2025-02-27 21:43 | Emergency (ER) | payer OTHER ==
[~2025-02-27] VITALS: Ht 154.9 cm; Wt 86.2 kg
[~2025-02-27 21:43] MED LIST changes: +IBUP-1955 PO; +LIDO30AD10 TP
[2025-02-28 00:15] LABS: BASOPHILS # (AUTO) 0.1 K/uL (0.0-0.2); BASOPHILS % (AUTO) 0.8 % (0.0-2.0); EOSINOPHILS # (AUTO) 0.2 K/uL (0.0-0.7); EOSINOPHILS % (AUTO) 2.4 % (0.0-6.0); HEMATOCRIT 48 % (39-51); LYMPHOCYTES # (AUTO) 2.5 K/uL (0.8-4.8); LYMPHOCYTES % (AUTO) 26.7 % (20.0-44.0); MEAN CORPUSCULAR HEMOGLOBIN 30 PG (26.0-33.0); MEAN CORPUSCULAR HGB CONC 33 g/dl (31.0-36.0); MEAN CORPUSCULAR VOLUME 91 fL (80-96); MONOCYTES # (AUTO) 1.2 K/uL (0.1-1.30); MONOCYTES % (AUTO) 13.2 % (2.0-12.0); NEUTROPHILS # (AUTO) 5.4 K/uL (1.8-8.9); NEUTROPHILS % (AUTO) 56.9 % (43.0-81.0); PLATELET COUNT (AUTO) 143 K/uL (150-450); RED BLOOD CELL COUNT(AUTO) 5.28 MIL/uL (4.5-6.0); RED CELL DISTRIBUTION WIDTH 15.2 % (11.5-15.0); WHITE BLOOD COUNT (AUTO) 9.4 K/uL (4.3-11.0)
[2025-02-28 00:23] LABS: CALCIUM, SERUM 9.6 mg/dL (8.5-10.1); CARBON DIOXIDE 24 mmol/L (21-32); CHLORIDE 101 mmol/L (98-107); CREATININE 0.9 mg/dL (0.6-1.3); GLUCOSE 179 mg/dL (74-106); POTASSIUM 4.1 mmol/L (3.5-5.1); SODIUM SERUM 133 mmol/L (136-145); UREA NITROGEN, BLOOD 38 mg/dL (7-18)
[2025-02-28 03:00] VITALS: BP 154/78; TEMP 98.2; O2SAT 98
== END 2025-02-28 03:00 | disposition home or self-care (01) ==
LOC: ER 21:52
DX: R42 Dizziness and giddiness (principal); E11.9 Type 2 diabetes mellitus without complications; I10 Essential (primary) hypertension; I25.2 Old myocardial infarction; Z79.82 Long term (current) use of aspirin; Z79.84 Long term (current) use of oral hypoglycemic drugs; Z79.899 Other long term (current) drug therapy; Z87.442 Personal history of urinary calculi
CPT/HCPCS: 36415; 70450-TC; 80048-TC; 84484-TC; 85025-TC